=== PATIENT | female | born 1950 | race Caucasian/White ===

== ENCOUNTER → 2024-10-24 11:01 | Outpatient (REF) | payer MEDICARE, OTHER, SELFPAY | LOC: HWRAD 11:01 | PROVIDERS: ATTENDING PHYSICIAN Family Medicine; REFERRING PHYSICIAN Internal Medicine Hematology & Oncology | DX: Z12.31 Encounter for screening mammogram for malignant neoplasm of breast (principal); M85.80 Other specified disorders of bone density and structure, unspecified site; Z78.0 Asymptomatic menopausal state | CPT/HCPCS: 77063; 77067 ==

== ENCOUNTER → 2024-11-29 09:10 | Outpatient (REF) | payer MEDICARE, OTHER, SELFPAY ==
[2024-11-29 10:09] LABS: % Basophils 0.8 % (0-2); % Eosinophils 13.5 % (0-6); % Immature Granulocytes 0.3 % (0-0.5); % Lymphocytes 14.4 % (20.5-51.1); % Monocytes 6.4 % (1.7-9.3); % Neutrophils 64.6 % (42.2-75.2); Absolute Basophils 0.1 10^3/uL (0-0.2); Absolute Eosinophils 0.9 10^3/uL (0-0.7); Absolute Lymphocytes 0.9 10^3/uL (1.2-3.4); Absolute Monocytes 0.4 10^3/uL (0.1-0.6); Absolute Neutrophils 4.2 10^3/uL (1.4-6.5); Hematocrit 37.3 % (37.0-47.0); Hemoglobin 11.9 g/dL (12.0-16.0); Mean Corp Hgb Conc. 31.9 g/dL (33.0-37.0); Mean Corpuscular Hgb 26.3 pg (27.0-31.0); Mean Corpuscular Volume 82.3 fL (81.0-99.0); Mean Platelet Volume 10.9 fL (7.4-10.4); Nucleated Red Blood Cells % 0 %; Platelet Count 262 10^3/uL (130-400); Red Blood Cell Count 4.53 10^6/uL (4.20-5.40); Red Cell Dist. Width 17.5 % (11.5-14.5); White Blood Cell Count 6.5 10^3/uL (4.8-10.8)
[2024-11-29 10:42] LABS: ALT (SGPT) 16 U/L (0-35); AST (SGOT) 28 U/L (14-36); Albumin 4.2 g/dl (3.5-5.0); Alkaline Phosphatase 81 U/L (38-126); Amylase 90 U/L (30-110); Blood Urea Nitrogen 15 mg/dl (7-17); Calcium 8.9 mg/dl (8.4-10.2); Carbon Dioxide 30 mmol/L (22-30); Chloride 102 mmol/L (98-107); Glucose 95 mg/dl (70-99); HDL Cholesterol 81 mg/dl; LDL Cholesterol, Calculated 82 mg/dl; Lipase 215 U/L (23-300); Potassium 4.7 mmol/L (3.5-5.1); Sodium 140 mmol/L (135-145); Total Bilirubin 1.2 mg/dl (0.2-1.3); Total Cholesterol 175 mg/dl (50-199); Total Protein 6.4 g/dl (6.3-8.2); Triglyceride 62 mg/dl (10-149); Very Low Density Lipoprotein 12 mg/dl (0-30); eGFR > 60.00
== END ==
LOC: REG 09:10
PROVIDERS: ATTENDING PHYSICIAN Family Medicine
DX: E78.2 Mixed hyperlipidemia (principal); I10 Essential (primary) hypertension; Z79.899 Other long term (current) drug therapy; R79.89 Other specified abnormal findings of blood chemistry; R10.13 Epigastric pain
CPT/HCPCS: 36415; 80053; 80061; 82150; 83690; 84443; 85025

== ENCOUNTER → 2024-12-04 12:57 | Outpatient (REF) | payer MEDICARE, OTHER, SELFPAY ==
[2024-12-04 13:50] LABS: % Basophils 0.9 % (0-2); % Eosinophils 8.1 % (0-6); % Immature Granulocytes 0.3 % (0-0.5); % Lymphocytes 15.7 % (20.5-51.1); % Monocytes 6.7 % (1.7-9.3); % Neutrophils 68.3 % (42.2-75.2); Absolute Basophils 0.1 10^3/uL (0-0.2); Absolute Eosinophils 0.6 10^3/uL (0-0.7); Absolute Lymphocytes 1.1 10^3/uL (1.2-3.4); Absolute Monocytes 0.5 10^3/uL (0.1-0.6); Absolute Neutrophils 4.7 10^3/uL (1.4-6.5); Hematocrit 37.5 % (37.0-47.0); Hemoglobin 11.8 g/dL (12.0-16.0); Mean Corp Hgb Conc. 31.5 g/dL (33.0-37.0); Mean Corpuscular Hgb 25.9 pg (27.0-31.0); Mean Corpuscular Volume 82.4 fL (81.0-99.0); Mean Platelet Volume 10.8 fL (7.4-10.4); Nucleated Red Blood Cells % 0 %; Platelet Count 267 10^3/uL (130-400); Red Blood Cell Count 4.55 10^6/uL (4.20-5.40); Red Cell Dist. Width 17.4 % (11.5-14.5); White Blood Cell Count 6.8 10^3/uL (4.8-10.8)
[2024-12-04 14:44] LABS: Iron 48 ug/dl (37-170)
[2024-12-04 14:53] LABS: Percent Saturation 9 % (20-50); Total Iron Binding Capacity 482 ug/dl (265-497)
[2024-12-04 16:34] LABS: Ferritin 9.6 ng/ml (11.1-264.0)
[2024-12-04 17:06] LABS: Folate 16.9 ng/ml (2.76-20); Vitamin B12 656 pg/ml (239-931)
== END ==
LOC: REG 12:57
PROVIDERS: ATTENDING PHYSICIAN Family Medicine
DX: D64.9 Anemia, unspecified (principal); Z79.899 Other long term (current) drug therapy
CPT/HCPCS: 36415; 82607; 82728; 82746; 83540; 83550; 85025

== ENCOUNTER 2025-06-04 12:39 | Inpatient (IN) | payer MEDICARE, OTHER, SELFPAY ==
[2025-06-04] VITALS (69 sets, daily range): BP systolic 96–150; BP diastolic 44–118; BMI 23.1
[2025-06-04 11:30] LABS: Glucose - Point of Care 105 mg/dl (70-99)
[2025-06-04 11:46] LABS: Hematocrit 45.0 % (37.0-47.0); Hemoglobin 15.4 g/dL (12.0-16.0); Mean Corp Hgb Conc. 34.2 g/dL (33.0-37.0); Mean Corpuscular Volume 89.3 fL (81.0-99.0); Nucleated Red Blood Cells % 0 %; Platelet Count 186 10^3/uL (130-400); Red Cell Dist. Width 16.7 % (11.5-14.5)
--- NOTE | 2025-06-04 11:48 | CON.NEURO4 ---
Addendum entered and electronically signed by Juanjose Reaves MD 06/04/25 13:36:
Studies reviewed.
I have personally examined the patient. I reviewed and agree with the CONCRETE FLOOR INSTALLER's Note.
My addenda:
Awake, interactive. No acute distress.
Speech reduced output with confusion regarding naming of objects and recall of current events
Follows one-step requests w/ difficulty. No tremor.
Extra-ocular movements grossly intact.
Facial movements full and symmetric. Hearing intact to normal conversational volume.
Normal UE movements bilaterally.
Neck: full ROM.
Chest: no dyspnea
Heart: no JVD
Ext: (-) Clubbing, (-) Cyanosis, (-) Edema
IMPRESSIONS/RECOMMENDATIONS:
Abrupt onset of change in mental status in the form of aphasia both receptive and expressive. 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 CT angiogram was read officially as suggesting left M2 occlusion. Based on studies now
demonstrating lack of improvement significantly with mechanical thrombectomy, patient would not be a candidate for that procedure at that distal location. Patient was however a candidate for tenecteplase and received that medication.
Provide tenecteplase (done)
Allow for permissive hypertension up to 220/120 for the first 24 hours
Consult vascular surgery due to suggestion of fibromuscular dysplasia involving the left internal carotid artery
Would avoid antiplatelet agents until 24 hours after tenecteplase provision, then provide the patient's usual aspirin and clopidogrel
Check echocardiogram due to extensive cardiac history
Continue Ezetimibe when patient able to take by mouth as well as usual atorvastatin
Total Critical Care Time=�40 minutes.
The neurological system is affected and the action required by me to prevent further deterioration or potential was control over the item listed first in the Impressions and Recommendations section of this note.
I was present and personally examined the patient.� I discussed patient care with other professional health care providers.
D/W patient / nursing
All questions answered.
Will continue to follow patient.
Original Note:
Documented by User: Sol Hernandez NP 06/04/25 12:59
Consultation - Neurology 4
-
CONSULTING PHYSICIAN: Juanjose Reaves MD
REFERRING PHYSICIAN: ER/Dr. Rojas
DICTATED BY: ANDREZ Cason
DATE/TIME OF REQUEST: 06/04/25
DATE/TIME OF CONSULTATION: 06/04/25
Reason for Consultation: Stroke Alert
History of Present Illness:
This is a 74-year-old right-handed female who has presented to the hospital with report of confusion and change in mental status. Patient's nephew lives with her and last saw her at her baseline last evening around 2100. This morning (06/04/25), he
noted that she woke up around 0800 and he heard her doing things in her room. Around 1100 he still had not seen her so he checked on her and noted that she was 'not making sense' and partially dressed, prompting him to call 911. EMS noted that her
right arm seemed weak and activated a stroke alert. CT head, CTA head/neck, and CT perfusion were obtained on arrival and demonstrate an ASPECT score 10, left M2 cutoff, and a large ischemic penumbra; mismatch ratio 14. NIHSS is a 6 for mild right
eyelid drooping, severe aphasia, inability to answer orientation questions, and right-sided sensory inattention. IV TNK was administered per protocol (reviewed risks/benefits with patient as best as possible given aphasia), she is not a candidate
for IAT due to the occlusion being distal. Patient is unable to answer review of system questions, she just reports 'not feeling right.' She is taking aspirin 81mg daily. She was previously on DAPT with aspirin 81mg and clopidogrel 75mg daily
following STEMI/PCI placement in 2022. Clopidogrel was recently discontinued at the end of March in the setting of anemia. She was previously evaluated by our inpatient Neurology service once in 2022 s/p STEMI due to altered mental status in the
setting of Phenergan, fentanyl, and midazolam usage. CT head, CTA head/neck were normal at that time and the patient returned to her baseline.
Past Medical History: HTN, STEMI x2, HFrEF, CAD, HLD, breast cancer, migraines, asthma, osteopenia, osteoarthritis, anxiety, iron deficiency anemia
Surgical History: AICD, PCI, R breast lumpectomy, lymph node dissection, ectopic /D&E, tonsillectomy, rhinoplasty
Family History: Reviewed and noncontributory.
Social History: Occasional alcohol. Denies tobacco and illicit drug use.
Allergies: Diazepam, promethazine.
Home Medications: See below.
Review of Symptoms:
Unable to obtain a full ROS due to aphasia.
�Per the HPI.�All systems are reviewed negative except above.
Physical Exam:
The patient is afebrile, abdomen is nondistended, breathing is unlabored, skin is warm and dry, no edema.
NIH Stroke Scale:
I performed the NIH stroke scale on the patient on 06/04/25 at 1140. The patient scored 6 points on the NIH stroke scale assessment, which were assigned as follows: See below.
Neurologic Examination:
The patient is awake, alert and oriented to first name only. She is able to follow some commands, has to mimic for others. She can answer some questions appropriately but not many. There is severe expressive/receptive aphasia, no dysarthria. On
cranial nerve assessment, pupils are 3 mm bilateral, round and reactive to light and accommodation. Visual marin appear full. Extraocular movements are intact but she has a left gaze preference. There is very slight right eyelid drooping/facial
asymmetry. Hearing is intact bilaterally to normal conversation volume. Tongue palate and uvula are midline. Motor strengths are 5/5 bilateral upper and lower extremities on medical research [place] scale. Takes extra prompting to follow commands on
her right side. There is no drift or involuntary movement noted. Deep tendon reflexes are 2+ bilateral upper and lower extremities and Babinski is absent bilaterally. There was extinction noted on double simultaneous stimulation on the right side.
Coordination is intact by finger to nose bilaterally.
Lab Results: See below.
Neuro Imaging:
1. CT Head 06/04/25: No CT evidence of acute intracranial abnormality. ASPECT score: 10.
2. CTA Head/Neck 06/04/25: There is an abrupt cut off of left insular M2 branch artery. No evidence for M1 large vessel occlusion or high-grade stenosis. Calcification involving the left carotid bulb and proximal left ICA with measured diameter
reduction of 48%, just less than hemodynamically significant range. Consider further evaluation with cerebrovascular ultrasound. Findings of the cervical portion of the left ICA, considered fairly characteristic for fibromuscular dysplasia. No
evidence for associated high-grade stenosis. Calcification of the cavernous internal carotid arteries bilaterally. On the left, narrowing appears to be in the range of 50% diameter reduction, and could be hemodynamically significant. No significant
narrowing of the vertebral or basilar arteries. Luminal irregularity of the left posterior cerebral artery, with suggestion of mild to moderate narrowing.
3. CT Perfusion 06/04/25: CBF Mismatch 52cc, ratio 14.0
Differentials for the patient's presentation include:
1. Acute L MCA ischemic stroke in the setting of a L M2 occlusion; etiology likely cardioembolic.
2. CTA head/neck suggestive of L ICA fibromuscular dysplasia.
Patient has the following risk factors for their symptoms: Recent discontinuation of clopidogrel, extensive cardiac comorbidities, HTN, HLD
IV Tenecteplase/IAT candidacy: IV TNK was administered per protocol, she is not a candidate for IAT due to the occlusion being distal.
Recommendations:
� administer IV Tenecteplase (TNK) per protocol urgently while keeping patient's blood pressure to a goal of systolic less than 185 and diastolic less than 110 mmHg during infusion of TNK
� place the patient in medical ICU
� goal blood pressure over the next 24 hours would be less than 180/105 mmHg
� check MRI of the brain within 22-32 hours of TNK without contrast for localization of the stroke
� vascular surgery consultation for suggestion of L ICA FMD
� hold all antiplatelets, OAC meds, DOAC meds, heparinoids for next 24 hours
� check lipid panel and hemoglobin A1c
� continue home atorvastatin 80 mg at bedtime when patient is able to take PO
� goal blood glucose levels for patient would be less than 180 mg/dL
� Speech, PT, OT evaluations needed
� Physiatry consultation warranted
� DVT prophylaxis with sequential compression devices over next 24 hours, can be started on Enoxaparin subcutaneous for DVT prophylaxis beginning 24 hours after TNK provision.
� medical educational materials will be provided
� check an echocardiogram
We will follow.
Discussed patient care with: Dr. Reaves, the patient
Vital Signs and Labs
-
Vital Signs and Labs:
Lab Results
06/04/25 11:33
Medications
-
Home Medications
�Medication �Instructions �Recorded
aspirin 81 mg chewable tablet 81 mg PO DAILY #0 tabs 04/04/23
atorvastatin 80 mg tablet 80 mg PO QPM #30 tabs 04/04/23
clopidogrel 75 mg tablet 75 mg PO DAILY #90 tabs 04/04/23
losartan 25 mg tablet 12.5 mg (1/2 x 25 mg) PO DAILY 04/04/23
Blood pressure #30 tabs
metoprolol succinate 25 mg 12.5 mg (1/2 x 25 mg) PO DAILY #30 04/04/23
tablet,extended release 24 hr tabs
(Toprol XL)
pantoprazole 40 mg tablet,delayed 40 mg PO DAILY #30 tabs 04/04/23
release
spironolactone 25 mg tablet 12.5 mg (1/2 x 25 mg) PO DAILY 30 04/16/23
days #15 tabs
dapagliflozin propanediol 10 mg 10 mg PO DAILY 09/07/23
tablet (Farxiga)
furosemide 20 mg tablet (Lasix) 20 mg PO Q48H 09/07/23
ezetimibe 10 mg tablet (Zetia) 10 mg PO DAILY 06/04/25
fluconazole 150 mg tablet 150 mg PO Q3D 06/04/25
NIH Stroke Score
Subsequent NIH Scale
Date of Subsequent NIH Scale: 06/04/25
Time of Subsequent NIH Scale: 11:40
NIH Stroke Score
Level of Consciousness: 0 - Alert
LOC Questions: 2-Neither correct
LOC Commands: 0-Performs both correctly
Best Horizontal Gaze: 0-Normal
Visual [place]: 0=Normal, no visual loss
Facial Palsy: 1=Minor paralysis
Motor - Right Arm: 0=No drift 10 seconds
Motor - Left Arm: 0=No drift 10 seconds
Motor - Right Le-No drift 5 seconds
Motor - Left Le-No drift 5 seconds
Limb Ataxia: 0-Absent
Sensation: 0-Normal
Best Language: 2-Severe aphasia
Dysarthria: 0-Normal
Extinction and Inattention: 1-Sensory inattention
NIH Total Score:: 6
Modified [place] (mRS) Score
Modified [place] Scale (mRS): Moderate disability. Requires some help, able to walk unassisted.
Score: 3
Alteplase Contraindication
Inclusion and Exclusion criteria reviewed: Yes

Documented by User: Juanjose Reaves MD 06/04/25 13:30
NIH Stroke Score
NIH Stroke Score
NIH Total Score:: 6
Modified [place] (mRS) Score
Score: 3
[2025-06-04] MEDS: TNKASE 3.2 MG IV (12:00)
[2025-06-04 12:04] LABS: Blood Urea Nitrogen 22 mg/dl (7-17); Calcium 10.4 mg/dl (8.4-10.2); Carbon Dioxide 22 mmol/L (22-30); Chloride 108 mmol/L (98-107); Glucose 118 mg/dl (70-99); Sodium 138 mmol/L (135-145); eGFR > 60.00
--- NOTE | 2025-06-04 12:05 | ED.CVA ---
History of Present Illness
General
Chief Complaint: CVA/TIA Symptoms
Source: patient
Time Seen by Provider: 06/04/25 11:27
Onset of Stroke Symptoms
Onset of symptoms known: No
Time pt last seen normal is known: Yes
Date last time pt seen normal: 06/04/25
History of Present Illness
History of Present Illness:
Note:
CHIEF COMPLAINT(S)
Confusion and weakness.
HISTORY OF PRESENT ILLNESS
A 74-year-old female, with a noted past medical history of heart issues including a heart condition a few years ago, was found in a confused state around 11:00 AM by her nephew. She reportedly woke up at 8:00 AM, during which she was heard by her
nephew making noises in her room. When evaluated at 11:00 AM, she was described as 'not making sense' and partially dressed. Her right side, particularly her right arm, demonstrated weakness, and she was unable to articulate words clearly.
Upon examination, the patient reported feeling 'weird' but denied having a headache or chest pain. Although she did not explicitly recognize any weakness, the neurological assessment revealed difficulty in naming items and following commands,
indicating receptive aphasia. Additionally, her cranial nerves were intact, and she exhibited no pronator drift. Her blood glucose level was confirmed normal at 117 mg/dL.
There was no known baseline dementia and no previous history of altered mental status according to EMS.
ADDITIONAL HISTORY OBTAINED FROM SOURCES OTHER THAN THE PATIENT
According to EMS, the patient was found in a state of confusion by her nephew and exhibited right-sided weakness when they arrived. The nephew reported hearing her moving around in the morning but couldnt articulate her thoughts clearly upon their
arrival.
PHYSICAL EXAM
General: Alert, no acute distress.
Skin: Warm, dry.
Head: Normocephalic, atraumatic.
Neck: Supple, trachea midline.
Eye Ears, nose, mouth, and throat: Oral mucosa moist, intact cranial nerves, displays receptive aphasia.
Cardiovascular: Regular rhythm without murmur, normal peripheral perfusion, no edema.
Respiratory: Respirations are non-labored.
Gastrointestinal: Abdomen non-distended.
Back: Normal range of motion, normal alignment.
Musculoskeletal: Right-sided weakness observed.
Neurological: Alert, intermittently follows commands, receptive aphasia, unable to name items on the NIHSS picture card. no obvious focal deficits, CN's intact
Psychiatric: Cooperative, appropriate mood and affect.
PROBLEM LIST
Acute:
1. Receptive aphasia
2. Right-sided weakness
3. Confusion
Chronic:
1. Heart condition
PLAN
The patient will undergo a computed tomography (CT) scan of the head to evaluate for potential cerebrovascular incident causes, such as a stroke. Further neurological assessments will be conducted to determine the extent of the aphasia and weakness.
DIFFERENTIAL DIAGNOSIS
The Differential Diagnosis includes, in no particular order and is not limited to:
1. Stroke
2. Transient Ischemic Attack (TIA)
3. Seizure activity
4. Hypoglycemia
5. Electrolyte imbalance
6. Medication side effects
7. Intracranial hemorrhage
8. Acute confusional state
9. Brain tumor
10. Infection (such as encephalitis or meningitis)
CARE-UPDATE
06/04/25 - 12:05
Patient received TNK administration. Perfusion analysis shows a mismatch greater than 1.8, indicating a significant penumbra versus infarct ratio. CTA results show M2 cut off. Receptive aphasia noted, as patient struggled with object
identification verbally and through visual recognition tests. Attempts to engage receptive functions were limited, largely due to communicative impairments. Despite these challenges, the patient demonstrated awareness of tactile stimuli on the
correct body side with eyes closed.
EKG
My independent EKG interpretation is:
- Time of EKG: [Not specified in the insurance risk analyst]
- Rhythm: Normal sinus rhythm
- Heart Rate: 97 bpm
- Douglas: Left axis deviation
- Notable Intervals: Left anterior fascicular block
- QRS Duration: Right bundle branch block
- Abnormalities: Evidence of left ventricular hypertrophy (LVH)
Disposition:
SUMMARY OF ENCOUNTER
A 74-year-old female was brought to the emergency department after her family member found her in a confused state, demonstrating receptive aphasia, and possible neglect. Upon examination, a CT perfusion study confirmed a stroke with penumbra.
Neurology was consulted and recommended the administration of tenecteplase (TNK), which was subsequently provided. The patient remained stable with a blood pressure of 143/75. The CT angiography showed a cutoff of the left M2 insular branch.
ASSESSMENT
The patient presents with symptoms consistent with a cerebrovascular accident (stroke) with receptive aphasia and potential neglect.
EMERGENCY TREATMENTS ADMINISTERED
Tenecteplase (TNK) was administered as recommended by the neurology team.
MANAGEMENT OF THE PATIENTS CARE WAS DISCUSSED WITH
Neurology was consulted for the initial management and did not recommend transfer for intervention, advising admission to the ICU.
PLAN
The patient will be admitted to the ICU for close monitoring and management of the acute stroke symptoms, with further instructions and management to be overseen by the neurology team.
INDEPENDENT REVIEW OF LABS AND INTERPRETATION OF TESTS
- My independent review of chemistry is that it is grossly unremarkable with normal sodium level.
- My independent review of blood glucose is normal at 118 mg/dL.
- My independent review of CT perfusion shows confirmation of stroke with penumbra.
- My independent review of CT angiography indicates a cutoff of the left M2 insular branch.
MEDICAL DECISION MAKING
- Number and Complexity of Problems Addressed: Chronic conditions affecting care include a history of heart conditions. Differential diagnosis includes stroke, transient ischemic attack (TIA), intracranial hemorrhage, acute confusional state, among
others.
- Data:
- Category 1
- My independent interpretation of the CT perfusion and CTA confirms a stroke with penumbra affecting the left M2 insular branch.
- Category 3
- Discussion of management was held with the neurology team, who advised against transfer and recommended ICU admission.
DIAGNOSIS
- Cerebrovascular accident (ischemic stroke), I63.9
Past History
Past History
ED Past Medical History: Cancer (Breast cancer) and HTN
ED Past Surgical History: Gynecological (Lymph node dissection, lumpectomy, ectopic )
Social History
Tobacco: Non-smoker
Phy Exam
Physical Exam
Physical Exam:
.
Course
Orders/Labs/Results
Orders:
Orders
06/04/25 11:28
Electrocardiogram (*1) Urgent
Reason for Study: Other
Other Reason for Exam: Possible Stroke
CT HEAD STROKE ALERT W/o Cont Urgent
Comment:
Reason For Exam: aphasia
Bedside Glucose- Treatment ONCE
Cardiac Monitoring- Treatment ONCE
IV Insert/Care/Rem.- Treatment PRN
Vital Signs As Directed
Frequency: Other
Weight As Directed
Frequency: Once
Comment: ZERO STRETCHER SCALE FOR ACCURATE WEIGHT
O2 Therapy [RESP] Urgent
Titrate/Wean O2 to maintain O2 sat greater than (%): 93
Special Instructions: MAINTAIN CONTINUOUS O2 SATS > OR = 93%
06/04/25 11:29
EKG- Treatment ONCE
06/04/25 11:30
CT BRAIN PERF STROKE ALERT Urgent
Comment:
Reason For Exam: expressive aphasia
CT HEAD/NECK ANG STROKE ALERT Urgent
Comment:
Reason For Exam: expressive aphasia
06/04/25 11:33
Basic Metabolic Panel Urgent
Complete Blood Count/With Diff Urgent
PTT Urgent
Prothrombin Time Urgent
06/04/25 11:55
Tenecteplase [Tnkase] 16 mg Syringe [Syringe Non-Pump] 0 ml IV NOW
Provider explained risk/benefits to patient &/or caregiver?: Yes
06/04/25 12:18
Transplant Coordinator Consult Routine
Consulting Provider: Josiah Miller
Was physician already notified: Yes
Reason for consult: acute cva s/p tpa
NEUROLOGY CONSULT Routine
Consulting Provider: Juanjose Reaves
Was physician already notified: Yes
Reason for consult: acute cva
06/04/25 12:19
Admit/Transfer Patient As Directed
Co-Sign Provider:
Level of Care: Inpatient admission
Assign to:: ICU
Physician / Group: yolanda josé
Diagnosis: acute cva s/p tnk
Reason for Hospitalization: acute cva s/p tnk
Expected length of stay greater than two midnights?: Yes
ELOS- Estimated Length of Stay in days: 6
I certify the patient meets the requirements for IP care: Yes
Echo 2D MMode Color/Doppler Routine
Reason for Study: Thrombotic source for stroke-like sxs
06/04/25 12:20
Code Status As Directed
Resuscitation Status: Full Code
06/04/25 12:26
PRN Pain Medication Management As Directed
May give lesser potent ordered pain med per pt: Yes
preference::
Protocol:: Medication orders for pain may be administered in a
manner that supports deferring to patient preference
when the pt is:
- Requesting an ordered lesser potent pain medication.
Least to most potent pain medications are defined
as: acetaminophen < NSAID < tramadol < opioids
(morphine, oxycodone, hydromorphone).
- Requesting a lesser dose of the same medication IF
ORDERED.
- Requesting a less intrusive route of administration
if both routes are prescribed by the provider (PO <
IV).
06/04/25 13:02
Acetaminophen [Tylenol] 650 mg PO Q4HPRN PRN
Labetalol HCl [Trandate] 10 mg IV Q6HPRN PRN
06/04/25 13:02
Electrocardiogram (*1) Routine
Reason for Study: TIA/Stroke
Case Management Consult Once
Case Management Consult: Discharge Planning
Comment: acute cva
DIETARY IP CONSULT Routine
Reason for Consult: stroke/TIA
Spreader Operator Automatic Urgent
Hemetest Stools As Directed
Comment: hemoccult all stools if patient received tenecteplase
NIH Stroke Scale As Directed
Directions: Other
Comment: NIH stroke Scale to be completed prior to thrombolytic administration, then every 1 hour for 2
hours, then every shift and with change in condition and/or mental status.
Neurological Checks As Directed
Frequency: Per unit guidelines
Additional Instructions:: after start of thrombolytic therapy:
q15min x 2 hrs, q30min x 6 hrs, q1h x 16 hrs, q4h x 24 hrs, then every shift and
with any changes.
Notify MD As Directed
Notify physician if: - Any deterioration, change in neurological status, development of severe headache,
nausea and vomiting, or with any signs of bleeding. (see guidelines for suspected
intracerebral hemorrhage).
- If intracranial hemorrhage is suspected or confirmed by imaging, anticipate need for
osmotic diuretic to maintain euvolemia.
Notify MD As Directed
Notify physician if: Glucose less than 70 or greater than 180.
Anticipate corrective insulin orders.
Notify MD As Directed
Notify physician if: unable to obtain MRI of head within 22-32 hours of tenecteplase administration
- contact Neurology for order for CT of head without contrast
Patient Education As Directed
Type: Stroke education packet
Comment: provide to patient and family
Pneumatic Compression Sleeves As Directed
Type: Knee high
Precautions As Directed
Type of Precautions: Bleeding
Comment: post Bleeding Precaution sign at bedside (if patient received tenecteplase)
Swallow Screening CVA/TIA ONLY As Directed
Comment: NPO until swallow screening completed
If patient FAILS swallow screening:: NPO and Speech consult and aspiration precautions
If patient PASSES swallow screening, diet:: Cholesterol Lowering
Above diet order entered?: Yes- passed screening
Thrombolytic Precautions As Directed
Thrombolytic Precautions:: Bigelow bleeding precautions. Minimize invasive procedures and venipunctures,
avoid IM injections and over-handling patient, and check all puncture sites for
bleeding. Assess the patient and notify provider for signs and symptoms of
internal or serious bleeding, such as changes in vital signs or evidence of blood
in the urine or stool.
Additional instructions: Hemocult all stools.
Apply direct pressure or pressure dressing to any compressible puncture sites.
No ABG sampling or Willard insertion after Tenecteplase administration for 24 hours,
unless directed by the Neurologist/Attending.
Vital Signs As Directed
Frequency: q15m
Call for:: BP greater than 180/105 mmHg or less than 100/60 mmHg
Additional Instructions:: after start of thrombolytic therapy:
q15min x 2 hrs, q30min x 6 hrs, q1h x 16 hrs, q4h x 24 hrs, then every shift and
with any changes.
Ot Eval And Treat Routine
Physiatry Consult Routine
Consulting Provider: Kd Syed
Was physician already notified: Yes
Reason for consult: stroke/TIA
Pt Eval And Treat Routine
Activity Level: As Tolerated
Speech Therapy Eval & Treat Routine
Carotid US [US Cerebrovascular] Routine
Comment:
Reason For Exam: acute CVA, carotid stenosis on CT
DX Deep Vein Thrombosis Video Routine
06/04/25 14:18
Troponin I Urgent
06/04/25 15:15
VerifyNow Aspirin Routine
Pt on daily regimen OR been given initial dose of aspirin?: Yes
Comment: may use blood in lab
06/05/25 03:07
Basic Metabolic Panel IN AM
Cardiovascular Evaluation IN AM
Complete Blood Count/No Diff IN AM
PTT IN AM
Prothrombin Time IN AM
Abnormal Lab Results
06/04/25 06/04/25
11:28 11:33
RDW 16.7 H %
(11.5-14.5)
MPV 10.5 H fL
(7.4-10.4)
Chloride 108 H mmol/L
(98-107)
BUN 22 H mg/dl
(7-17)
Glucose 118 H mg/dl
(70-99)
Calcium 10.4 H mg/dl
(8.4-10.2)
POC Glucose 105 H mg/dl
(70-99)
06/04/25 11:33
06/04/25 11:33
Vital Signs
Initial and Last Documented VS:
Initial Vital Signs
Pulse Resp BP
99 18 143/75
06/04/25 12:03 06/04/25 12:03 06/04/25 12:03
Last Documented Vital Signs
Temp Pulse Resp BP Pulse Ox
97.9 F 82 16 128/55 99
06/06/25 15:30 06/06/25 15:30 06/06/25 15:30 06/06/25 15:30 06/06/25 15:30
*Pulse Oximetry
SaO2: 98
Oxygen Mode of Delivery: Room air
Patient hypoxic: no
*Cloth Baler Interpretation
Rate: normal
Interpretation: normal
Rhythm: sinus
*Critical Care Note
Total Time (30-74mins, 75-104mins- exclusive of procedures): 35 minutes
ED Attending Note
-
Portions of this chart may have been created with voice recognition software.� Occasional wrong word or��sound alike� substitutions may have occurred due to the inherent limitations of voice recognition software.
Discharge Plan
Departure
Patient Disposition: Admit
Date of Disposition: 06/04/25
Time of Disposition: 12:05
Admit to: ICU
Presentation/result/management discussed w/ accepting MD/DO: Hospitalist
Discharge Problem:
Acute cerebrovascular accident (CVA)
Interventions
Interventions:
*Risk Screen - Suicide Last Done: 06/04/25 12:51
*General Assessment Last Done: 06/04/25 12:51
*Neglect/Abuse Screening Last Done: 06/04/25 12:51
*ED- Fall Risk Assessment Last Done: 06/04/25 12:51
*ED COVID-19 Vaccine History Last Done: 06/04/25 14:46
*Nursing Disposition Last Done: 06/04/25 12:51
ED- Pulmonary Assessment Last Done: 06/04/25 12:23
ED- Neurological Assessment Last Done: 06/04/25 12:23
ED- Cardiac Assessment Last Done: 06/04/25 12:23
Discharge Date and Time
Discharge Date/Time: 06/04/25 12:52
[2025-06-04 12:06] LABS: INR 0.98; PT 13.5 Sec (11.4-14.6)
[2025-06-04 12:07] LABS: APTT 23.6 Sec (23.4-35.0)
--- NOTE | 2025-06-04 12:23 | HPS.HSE ---
Family Physician
-
Family Physician:
Chief Complaint
-
acute CVA
History of Present Illness
74 y/o F, CAD s/p stents, HLD, Reported hx of CHF, Asthma, hx of right breast Ca found today confused by her nephew around 11 AM. She woke up at 8 AM and was noted by nephew to be making noises in her room. at 11 AM, nephew noted patient not making
any sense and was partially dressed. She was demonstrating RUE weakness and unable to articulate her words clearly. She was brought to ER as a CVA alert. In ER she was having difficulty naming items and was not able to fully follow commands. Also
not perceptive of RUE weakness. Neurology was contacted and patient was screened for and then given TNK for acute CVA.
CT revealed Lt M2 occlusion not amenable to thrombectomy per Neurology.
Of note, patient with recent issue of iron deficiency anemia for which Plavix was stopped by her Machine Captain and she was due for EGD/Colon tomorrow with GI to evaluate anemia.
Medical History
Past Medical History
Past Medical History: Reports Other (CAD s/p stents, HLD, Reported hx of CHF, Asthma, hx of right breast Ca)
Past Surgical History: Reports Cardiac
Social History
Tobacco: Non-smoker
Alcohol: None
Drug: None
Living: With Family
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
Family History
Family History: Not pertinent
Allergies / Home Medications
Allergies reflects when Allergies were last updated in [facility].
Home Medications with original date entered in [facility]
Allergy/Medication List:
Allergies
Allergy/AdvReac Type Severity Reaction Status Date / Time
diazepam (From Valium) Allergy Unknown Verified 09/15/23 06:42
promethazine (From Phenergan) Allergy Unknown Verified 09/15/23 06:42
Home Medications
aspirin 81 mg chewable tablet 81 mg PO DAILY #0 tabs 04/04/23
atorvastatin 80 mg tablet 80 mg PO QPM #30 tabs 04/04/23
clopidogrel 75 mg tablet 75 mg PO DAILY #90 tabs 04/04/23
losartan 25 mg tablet 12.5 mg (1/2 x 25 mg) PO DAILY Blood pressure #30 tabs 04/04/23
pantoprazole 40 mg tablet,delayed release 40 mg PO DAILY #30 tabs 04/04/23
spironolactone 25 mg tablet 12.5 mg (1/2 x 25 mg) PO DAILY 30 days #15 tabs 04/16/23
dapagliflozin propanediol 10 mg tablet (Farxiga) 10 mg PO DAILY 09/07/23
furosemide 20 mg tablet (Lasix) 20 mg PO Q48H 09/07/23
ezetimibe 10 mg tablet (Zetia) 10 mg PO DAILY 06/04/25
fluconazole 150 mg tablet 150 mg PO Q3D rash 06/04/25
metoprolol succinate 25 mg tablet,extended release 24 hr (Toprol XL) 12.5 mg PO DAILY 06/04/25
Review of Systems
-
A 12 point ROS was completed and negative except as noted: Yes
Physical Exam
Vital Signs
Vital Signs
Pulse Resp BP Pulse Ox
99 18 142/62 98
06/04/25 12:17 06/04/25 12:17 06/04/25 12:17 06/04/25 12:21
Physical Exam
General: No Apparent Distress
HEENT: NormoCephalic and Anicteric
Respiratory: Clear
Cardiac: S1/S2 and Regular Rhythm
GI: Soft
Neuro: Awake and Other (Right sided 2/5 weakness, expressive and receptive asphasia. unable to name items on stroke assessment card. )
Psych: Calm
Laboratory Results
-
06/04/25 11:33
06/04/25 11:33
Laboratory Results
PT 13.5 Sec (11.4-14.6) 06/04/25 11:33
INR 0.98 06/04/25 11:33
APTT 23.6 Sec (23.4-35.0) 06/04/25 11:33
Total Bilirubin Cancelled 06/04/25 11:33
AST Cancelled 06/04/25 11:33
ALT Cancelled 06/04/25 11:33
Alkaline Phosphatase Cancelled 06/04/25 11:33
Troponin I Cancelled 06/04/25 11:33
Data Reviewed
-
CT Scan: Report Reviewed by me, Discussed with Physician and Discussed with Patient
Lab Data: Labs Reviewed by me, Discussed with Physician and Discussed with Patient
Impression/Plan
-
Assessment:
Acute CVA:
- CT head negative
- CT-Perfusion: Perfusion abnormality is present involving the posterior and superior insular region, with core perfusion abnormality in the insular region. Larger area of penumbra extending superiorly centered in the left parietal region.
- CTA: abrupt cut off of left insular M2 branch artery. Calcification involving the left carotid bulb and proximal left ICA with measured diameter reduction of 48%, just less than hemodynamically significant range. Consider further evaluation with
cerebrovascular ultrasound. Findings of the cervical portion of the left ICA, considered fairly characteristic for fibromuscular dysplasia. No evidence for associated high-grade stenosis. Calcification of the cavernous internal carotid arteries
bilaterally. On the left, narrowing appears to be in the range of 50% diameter reduction, and could be hemodynamically significant.
- reviewed with Neurology; not a target for mechanical thrombectomy
- TNK administered in ER
- ICU admission
- post-TNK protocol with BP monitoring and neuro-checks/NIH scales ordered
- BP goal maintain less than 180/105; prn Labetalol with parameters. hold PO agents
- hold all blood thinners
- check Carotid US
- check Echo
- routine MRI brain in 24 hours
- Lipids/A1c
- Neurology consult
- ICU consult
- Vascular consult for L ICA showing FMD
- PT/OT
- ST
- PMR evaluation
CAD s/p stents (2 years ago)
Essential HTN
HLD
- hold BB/ASA/Statin/Losartan/Zetia/Farxiga
- recently taken off Plavix due to iron deficiency workup planned outpatient
Iron deficiency anemia
- was planned for EGD/Colon 06/05; I notified Dr. Padilla
- hold oral PPI
- daily IV PPI
Chronic HFrEF
- repeat Echo
- holding Lasix
DVT ppx: SCDs
Code: Full
Total Critical Care Time 50 minutes. I was immediately available to the patient and staff. I personally examined, reviewed labs, diagnostic images/reports, interpretations, treatment plans, discussed patient care with other providers and family
or caregivers (if patient is unable to make decisions), entered orders as appropriate and documented the medical record.
--- NOTE | 2025-06-04 12:24 | PHANOTE ---
Home med note:
Cardiology note in [facility] from 05/12/25
' She had been on aspirin and Plavix but because of the iron deficiency anemia during her recent visit on 04/24/[address] Steiner she was taken off the Plavix since she is greater than 2 years post ACS with stent placement and was also started on
oral iron supplements and was recommended endoscopy and colonoscopy.'
--- NOTE | 2025-06-04 13:24 | CON.VAS ---
Addendum entered and electronically signed by Carlos Alberto Santana MD 06/04/25 16:06:
Seen and examined with LUANN Ahuja. Agree with findings as noted below. Lateralizing left hemispheric symptoms today with expressive aphasia and right arm discoordination. Resolved after the administration of TNK. No prior symptoms. No amaurosis
symptoms ever. No prior history of strokes. Risk factors and medical history as noted below.
On exam/she is awake and alert. No acute distress. Breathing is unlabored. Neurologically no focal deficits.
CT angiogram reviewed. Left carotid bifurcation/proximal internal carotid artery moderate atherosclerotic plaque, but no stenosis greater than 50%. Fibromuscular dysplasia findings noted in bilateral cervical internal carotid arteries, left side
appears more pronounced than the right side. There is no evidence of stenosis in this segment of fibromuscular dysplasia even on the fine cut CT scan images.
Plan/ Left carotid (bilateral) fibromuscular dysplasia. Left TIA/CVA event, resolved after TNK administration. If this was a fibromuscular dysplasia driven phenomenon, there is no residual stenosis that would warrant angioplasty at this time.
May have been a micro thrombus or platelet aggregation associated with fibromuscular dysplasia, but cannot say definitively. Would recommend antiplatelet therapy (either aspirin alone or consideration for aspirin/Plavix). Will defer to neurology
regarding further management of TIA/CVA event. She can follow-up in the office with us in 6 months with repeat CTA of the head and neck for further surveillance of carotid fibromuscular dysplasia. In addition would recommend at some point CT
angiogram imaging of the abdomen/pelvis for screening for renal artery fibromuscular dysplasia as well as iliac artery involvement.
Original Note:
Consultation
Consultation Request
Date/Time Consultation Performed: 06/04/25 1:45pm
Performing Provider: Max
Reason for Consultation: Carotid stenosis
Medical History
-
Chief Complaint: Confusion
History of Present Illness:
74 yo female with PMH significant for CAD, HLD, CHF, asthma, hx of breast CA presented to the ER today from home for confusion. Pt's nephew found her confused around 11am. She was 'not making sense' and partially dressed. Pt states she 'could not
find her right arm' and could see an arm that 'seemed like a fake rubber arm.' In ER pt had difficulty naming objects and following commands. Pt was seen by neurology and given TNK for acute CVA. CT revealed Lt M2 occlusion not amenable to
thrombectomy per Neurology, and possible FMD.
Vascular consult for above findings. Pt seen at bedside this afternoon with Dr Santana. Pt has no complaints at this time, she feels back to her baseline.
Past Medical History
Past Medical History: Asthma, CAD (stenting), Cancer (Breast), CHF and Other (HLD)
Past Surgical History: Cardiac
Social History
Tobacco: Non-Smoker
Alcohol: None
Drug: None
Living: With Family
Employment: Employed
Family History
Family History: Reviewed & Not Pertinent
Allergies / Home Medications
Allergy/AdvReac Type Severity Reaction Status Date / Time
diazepam (From Valium) Allergy Unknown Verified 09/15/23 06:42
promethazine (From Phenergan) Allergy Unknown Verified 09/15/23 06:42
�Medication �Instructions �Recorded �Confirmed �Type
aspirin 81 mg chewable tablet 81 mg PO DAILY #0 tabs 04/04/23 06/04/25 Rx
atorvastatin 80 mg tablet 80 mg PO QPM #30 tabs 04/04/23 06/04/25 Rx
clopidogrel 75 mg tablet 75 mg PO DAILY #90 tabs 04/04/23 09/15/23 Rx
losartan 25 mg tablet 12.5 mg (1/2 x 25 mg) PO DAILY 04/04/23 06/04/25 Rx
Blood pressure #30 tabs
pantoprazole 40 mg tablet,delayed 40 mg PO DAILY #30 tabs 04/04/23 06/04/25 Rx
release
spironolactone 25 mg tablet 12.5 mg (1/2 x 25 mg) PO DAILY 30 04/16/23 06/04/25 Rx
days #15 tabs
dapagliflozin propanediol 10 mg 10 mg PO DAILY 09/07/23 06/04/25 History
tablet (Farxiga)
furosemide 20 mg tablet (Lasix) 20 mg PO Q48H 09/07/23 06/04/25 History
ezetimibe 10 mg tablet (Zetia) 10 mg PO DAILY 06/04/25 06/04/25 History
fluconazole 150 mg tablet 150 mg PO Q3D rash 06/04/25 06/04/25 History
metoprolol succinate 25 mg 12.5 mg PO DAILY 06/04/25 06/04/25 History
tablet,extended release 24 hr
(Toprol XL)
Review of Systems
-
History Source: Patient
All other systems: Negative unless noted
Constitutional: Reports No Symptoms
EENT: Reports No Symptoms
Respiratory: Reports No Symptoms
Cardiac: Reports No Symptoms
Vascular: Denies Leg Pain / Claudication
Abdomen/GI: Reports No Symptoms
Musculoskeletal: Reports No Symptoms
Skin: Reports No Symptoms
Neurological: Reports Other ('Could not find her right arm')
Physical Exam
Vital Signs
Pulse Resp BP Pulse Ox
71 14 132/70 95
06/04/25 13:02 06/04/25 13:02 06/04/25 13:02 06/04/25 12:50
Lab Results
06/04/25 11:33
06/04/25 11:33
Troponin I Cancelled 06/04/25 11:33
Physical Exam
General: No Apparent Distress
HEENT: Normocephalic and Atraumatic
Respiratory: Non Labored Respirations
Cardiac: Negative JVD
GI: Soft
Musculoskeletal: No Clubbing, No Cyanosis and No Edema
Skin: Warm
Neuro: Awake, Alert and Oriented
Psych: Calm
Assessment / Plan
-
74 yo female here with acute CVA
Plan:
Recommend to continue Aspirin and plavix when cleared
I will add vascular office follow up to chart (6 months with repeat CTA head/neck)
Data Reviewed
-
CT Scan: Discussed with Physician
Labs: Labs Reviewed by me
--- NOTE | 2025-06-04 13:44 | CON.INTV ---
Consultation
Consultation Request
Date/Time Consultation Requested: 06/04/2025
Date/Time Consultation Performed: 06/04/2025
Requesting Provider: Dr. Martinez
Performing Provider: Dr. Josiah Enamorado
Reason for Consultation: Acute CVA
Medical History
-
History of Present Illness:
74-year-old woman with past medical history significant for coronary artery disease with prior stents, hyperlipidemia, possible history of heart failure unknown type, asthma, history of right breast cancer found confused by her nephew around 11 AM.
She was heard making noises in the room around 8 AM. Patient was confused. There was some reports of right upper extremity weakness and aphasia.
Brought to the emergency room for evaluation of CVA. There was no motor deficit but there was expressive aphasia noted.
Neurology consulted emergently and evaluated the patient, tenecteplase was provided for suspicion of acute CVA.
CT of the head/neck revealed a left M2 occlusion not amenable for thrombectomy.
-
It is noted that her Plavix was discontinued recently due to iron deficiency anemia. She was supposed to get EGD and colonoscopy tomorrow.
Past Medical History
Past Medical History: Other (See assessment and plan)
Social History
Tobacco: Non-smoker
Alcohol: None
Drug: None
Living: With Family
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
Family History
Family History: Reviewed & Not Pertinent
Allergies / Home Medications
Allergies
Allergy/AdvReac Type Severity Reaction Status Date / Time
diazepam (From Valium) Allergy Unknown Verified 09/15/23 06:42
promethazine (From Phenergan) Allergy Unknown Verified 09/15/23 06:42
Home Medications
�Medication �Instructions �Recorded �Confirmed �Last Taken �Type
aspirin 81 mg chewable tablet 81 mg PO DAILY #0 tabs 04/04/23 06/04/25 09/15/23 05:30 Rx
atorvastatin 80 mg tablet 80 mg PO QPM #30 tabs 04/04/23 06/04/25 09/14/23 18:00 Rx
clopidogrel 75 mg tablet 75 mg PO DAILY #90 tabs 04/04/23 09/15/23 09/15/23 05:30 Rx
losartan 25 mg tablet 12.5 mg (1/2 x 25 mg) PO DAILY 04/04/23 06/04/25 09/15/23 05:30 Rx
Blood pressure #30 tabs
pantoprazole 40 mg tablet,delayed 40 mg PO DAILY #30 tabs 04/04/23 06/04/25 09/15/23 05:30 Rx
release
spironolactone 25 mg tablet 12.5 mg (1/2 x 25 mg) PO DAILY 30 04/16/23 06/04/25 09/15/23 05:30 Rx
days #15 tabs
dapagliflozin propanediol 10 mg 10 mg PO DAILY Diabetes 09/07/23 06/04/25 09/14/23 20:30 History
tablet (Farxiga)
furosemide 20 mg tablet (Lasix) 20 mg PO Q48H Fluid 09/07/23 06/04/25 09/13/23 08:30 History
Retention/Swelling
ezetimibe 10 mg tablet (Zetia) 10 mg PO DAILY High Cholesterol 06/04/25 06/04/25 Unknown History
fluconazole 150 mg tablet 150 mg PO Q3D rash 06/04/25 06/04/25 Unknown History
metoprolol succinate 25 mg 12.5 mg PO DAILY Blood Pressure 06/04/25 06/04/25 Unknown History
tablet,extended release 24 hr
(Toprol XL)
Review of Systems
-
History Source: Patient
All other systems: Negative unless noted
Vitals / Labs / Diagnostic Testing
Vital Signs
Pulse Resp BP Pulse Ox
70 18 118/50 96
06/04/25 13:32 06/04/25 13:32 06/04/25 13:32 06/04/25 13:15
Lab Data
06/04/25 11:33
06/04/25 11:33
Laboratory Results
06/04/25
11:33
PT 13.5
INR 0.98
APTT 23.6
Diagnostic Testing:
Physical Exam
-
HEENT: Normocephalic
Cardiovascular: S1/S2
Respiratory: Non-Labored Respirations
GI: Soft
Neurology: Awake, Alert, No Motor Deficits, Other (Following commands. Attempting to read the menu.) and Other (Mild expressive aphasia noted.)
Skin: Warm
General: Comfortable
Assessment
-
74-year-old woman admitted with confusion. Received tenecteplase due to suspicion for acute CVA. Then transferred to the critical care unit for further hemodynamic monitoring and workup. 06/04/2025
Aphasia/confusion-suspected acute CVA
Status post tenecteplase 06/04/2025
Conditions present prior admission:
Coronary artery disease status post stents
Hyperlipidemia
History of asthma
History of right breast cancer
History of CHF unknown type
Iron deficiency
Assessment and plan:
-ICU hemodynamic monitoring.
-Monitor for bleeding
-Telemetry monitoring.
- Status post IV Tenecteplase a single bolus at 0.25 mg/kg-06/04/2025
- Continue with every hour neurochecks
-
Clinically improved. Mild expressive aphasia. NIH scale 1
No significant motor deficit on exam
-Maintain euvolemia using 0.9% NaCl if necessary.
-Avoid antihypertensive medications unless MAP is persistently higher than 180 or first 24 hours.
- Labetalol IV as needed will be used.
- Hold oral antihypertensive for now
-Maintain elevation of HOB 30-45 degrees.
-Speech evaluation per protocol
-Utilize a pneumatic compression device for DVT prophylaxis.
-No antiplatelet agents nor anticoagulants, including heparin, low molecular weight heparin, heparinoids, warfarin, ASA and other antiplatelet agents, and NSAIDs;
-Monitoring of vital signs and neurologic status should be performed every hour.
-
-Restart antiplatelets eventually. Plavix was held as the patient has a history of iron deficiency workup ongoing by GI in the outpatient setting-currently will be on hold.
- Echocardiogram has been ordered
-MRI brain wo adrian next 24 hours.
-Vascular has been consulted given the presence of left internal carotic abnormality on CT angiogram.
-TTE
-SCD/TEDs
-
Eventually physical therapy/Occupational Therapy and physiatry consultation.
Critical care statement: A total of 31 minutes of critical care time was provided for this patient today. This includes management of unstable vital signs, evaluation of the patient at bedside, reviewing the patient's pertinent medical records
including ventilator settings, arterial blood gases, radiographs, microbiology, laboratory evaluations and discussion with primary team, critical care nursing, and respiratory therapy.

Data review:
CT head 06/04/2025: No acute intracranial abnormality.
-
Perfusion brain CT 06/04/2025:Perfusion abnormality is present involving the posterior and superior insular region, with core perfusion abnormality in the insular region. Larger area of penumbra extending superiorly centered in the left parietal
region.
-
CT angiogram:No evidence for M1 large vessel occlusion or high-grade stenosis.
Calcification involving the left carotid bulb and proximal left ICA with measured diameter reduction of 48%, just less than hemodynamically significant range. Consider further evaluation with cerebrovascular ultrasound.
Findings of the cervical portion of the left ICA, considered fairly characteristic for fibromuscular dysplasia. No evidence for associated high-grade stenosis.
Calcification of the cavernous internal carotid arteries bilaterally. On the left, narrowing appears to be in the range of 50% diameter reduction, and could be hemodynamically significant.
No significant narrowing of the vertebral or basilar arteries.
Luminal irregularity of the left posterior cerebral artery, with suggestion of mild to moderate narrowing.
[2025-06-04 14:59] LABS: Troponin I 0.031 ng/ml
--- NOTE | 2025-06-04 15:28 | CM ---
Initial assessment completed with patient who lives with her nephew who is blind in a 2 story townhouse with garage on 1st level and B/B on 2nd level, 6 steps to enter 2nd flooor. [employer] patient was independent in ADL's and ambulation, drives. No DME
and no in-home services. Does have a HC-POA. PCP is Dr. Laura Sawant and Pharmacy is [facility] in [place]. Discharge POC: Anticipate Home with NN vs Home with HH.
--- NOTE | 2025-06-04 15:29 | PTOTSP ---
Speech Therapy Evaluation:
Swallow:
Pt with acute risk factor including c/f acute CVA, however oropharyngeal swallow appeared functional at bedside. No overt s/sx of aspiration, pt passed 3oz swallow screen, WBC WNL, pt without dysphagia hx, and CXR without acute cardiopulmonary
process.
Language:
Given c/f acute L MCA CVA with severe aphasia noted in ED, the Quick Aphasia Battery (QAB) Form 1 was administered. Scores were as follows:
Word Comprehension: 10.00
Sentence Comprehension: 10.00
Word Findin.00
Grammatical Construction: 10.00
Speech Motor Programmin.00
Repetition: 10.00
Readin.00
QAB Overall: 10.00 - no aphasia.
Impression: Pt earned an overall score of 10.00, indicative of no aphasia per parameters of this assessment.
Recommend:
1. Continue regular solids and thin liquids
2. Meds as tolerated
3. General aspiration precautions
4. SENIOR BILLING CONSULTANT to follow for tolerance of diet, likely brief
5. No SENIOR BILLING CONSULTANT services warranted for language, however will monitor MRI to determine if further cognitive assessment warranted
--- NOTE | 2025-06-04 16:01 | PTCARENOTE ---
Pt transported to unit bed from ED via stretcher and transferred over to unit bed by nursing staff. Pt with receptive and expressive aphasia with right sided facial palsy and right sided weakness. Unable to recall last name, age, month. Upon
transfer to ICU, pt began saying, 'I remember my last name! I'm 74! It's May!' NIHSS 0 upon arrival. Pt expressing word finding issues at times, but not observed during time of NIHSS assessments. SaO2 98% on room air. Coarse scattered rhonchi
upon auscultation. Sinus rhythm with BBBC on monitor car operator. Peripheral pulses palpable. ECHO and Carotid US completed at bedside. Pt passed swallow eval. Upgrade to Low Cholesterol diet. Pt ate 100% of lunch. Assist x1 to bathroom, voiding clear
yellow urine.
[2025-06-04 16:13] LABS: VerifyNow Aspirin 542 ARU
[2025-06-04] MEDS: LIPITOR 80 MG PO (18:23)
--- NOTE | 2025-06-04 21:28 | PTCARENOTE ---
Pt received start of shift, HR SB/SR w/ BBB and occasional a-pacing on telemetry. NIH performed w/ previous shift RN; Score 0. AAOx4. RA, POX 97%. Voiding well.
Pt used call velazquez to inform RN she was 'having an ocular migraine' and could see a 'lightning bolt squiggle' in R eye. Pt vision otherwise WNL. Pt denied any vision blurriness or headache. Pt stated this happens a few times a year and doesn't take
anything for it. TERMINOLOGIST aware. Resolved in approximately 20-30 minutes without intervention and with no other symptom onset.
[2025-06-04] MEDS: ZETIA 10 MG PO (22:12)
[2025-06-04] MEDS: FARXIGA 10 MG PO (22:12)
[2025-06-04] MEDS: TYLENOL 650 MG PO (22:13)
[2025-06-05] VITALS (34 sets, daily range): BP systolic 95–126; BP diastolic 36–78; PULSE 67–68; BMI 23.0
--- NOTE | 2025-06-05 01:36 | PTCARENOTE ---
Pt reassessed. PRN tylenol for MCLEOD - see MAR, effective. NIH remains 0.
[2025-06-05 03:20] LABS: Hematocrit 41.2 % (37.0-47.0); Hemoglobin 14.0 g/dL (12.0-16.0); Mean Corp Hgb Conc. 34.0 g/dL (33.0-37.0); Mean Corpuscular Volume 89.0 fL (81.0-99.0); Platelet Count 164 10^3/uL (130-400); Red Cell Dist. Width 16.8 % (11.5-14.5)
[2025-06-05 03:34] LABS: INR 0.97; PT 13.4 Sec (11.4-14.6)
[2025-06-05 03:35] LABS: APTT 25.1 Sec (23.4-35.0)
[2025-06-05 03:47] LABS: Blood Urea Nitrogen 20 mg/dl (7-17); Calcium 9.5 mg/dl (8.4-10.2); Carbon Dioxide 23 mmol/L (22-30); Chloride 109 mmol/L (98-107); Estimated Creatinine Clearance 56 ml/min; Glucose 109 mg/dl (70-99); HDL Cholesterol 68 mg/dl; LDL Cholesterol, Calculated 65 mg/dl; Potassium 4.2 mmol/L (3.5-5.1); Sodium 138 mmol/L (135-145); Very Low Density Lipoprotein 12 mg/dl (0-30); eGFR > 60.00
--- NOTE | 2025-06-05 05:51 | PTCARENOTE ---
Pt ambulating to bathroom to void. No change in assessment.
--- NOTE | 2025-06-05 07:10 | PTCARENOTE ---
Handoff NIH-0. She is very pleasant and has complete resolution of her symptoms. She denies headache & any other discomfort. Left AC IV site flushed and patent. Right upper extremity limb alert maintained. Knee-hi SCD's maintained. Lungs CTA. Good
peripheral pulses. She was informed to notify me if she feels SOB, dizzy or has a severe headache. She nodded her head in understanding. Safe environment maintained.
[2025-06-05] MEDS: NSS (PRESERVATIVE FREE) 10 ML IV (09:07)
[2025-06-05] MEDS: PROTONIX IV 40 MG IV (09:07)
[2025-06-05] MEDS: COMPAZINE 10 MG PO (09:11)
[2025-06-05 09:32] LABS: Glycohemoglobin (HgbA1c) 5.8 % (4.0-5.6)
--- NOTE | 2025-06-05 09:55 | W.PN.NEURO.1 ---
Addendum entered and electronically signed by Juanjose Reaves MD 06/05/25 10:51:
Studies reviewed.
I have personally examined the patient. I reviewed and agree with the FLIGHT TECHNICIAN's Note.
My addenda:
Awake, alert, interactive. No acute distress.
Speech intact.
Follows 2-step requests w/o difficulty. No tremor.
Extra-ocular movements grossly intact.
Facial movements full and symmetric. Hearing intact to normal conversational volume.
Normal UE movements bilaterally.
Neck: full ROM.
Chest: no dyspnea
Heart: no JVD
Ext: (-) Clubbing, (-) Cyanosis, (-) Edema
IMPRESSIONS/RECOMMENDATIONS:
Abrupt onset of aphasia with CTP demonstrating evidence for left middle cerebral artery acute ischemic stroke
Provide patient with combination of aspirin and clopidogrel beginning 24 hours after tenecteplase
Check efficacy of clopidogrel after 4 doses by means of P2Y12 testing ([employer]) which may be performed after discharge as the patient may have developed anemia with the use of both aspirin and clopidogrel previously and may return to having same
with the combination being restarted
Continue combination of atorvastatin and Ezetimibe
Goal of normotension starting 24 hours after stroke onset
Appreciate vascular surgery evaluation and patient should have routine follow-up in approximately 6 months to ensure absence of fibromuscular dysplasia in the left internal carotid artery
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
D/W patient
Will continue to follow patient as needed.
Original Note:
Documented by User: Sol Hernandez NP 06/05/25 10:15
Today's Communication / Plan
-
.
Neuro Assessment/Plan
Assessment
IMPRESSIONS/RECOMMENDATIONS:
Abrupt onset of change in mental status in the form of aphasia both receptive and expressive. 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 CT angiogram was read officially as suggesting left M2 occlusion. Based on studies now
demonstrating lack of improvement significantly with mechanical thrombectomy, patient would not be a candidate for that procedure at that distal location. Patient was however a candidate for tenecteplase and received that medication. CTA head/neck
is suggestive of L iCA FMD. Patient was on DAPT previously but had recently stopped clopidogrel one month ago due to anemia which has now resolved. She was scheduled to have a colonoscopy today.
-CT Head 06/04/25: No CT evidence of acute intracranial abnormality. ASPECT score: 10.
-CTA Head/Neck 06/04/25: There is an abrupt cut off of left insular M2 branch artery. No evidence for M1 large vessel occlusion or high-grade stenosis. Calcification involving the left carotid bulb and proximal left ICA with measured diameter
reduction of 48%, just less than hemodynamically significant range. Consider further evaluation with cerebrovascular ultrasound. Findings of the cervical portion of the left ICA, considered fairly characteristic for fibromuscular dysplasia. No
evidence for associated high-grade stenosis. Calcification of the cavernous internal carotid arteries bilaterally. On the left, narrowing appears to be in the range of 50% diameter reduction, and could be hemodynamically significant. No significant
narrowing of the vertebral or basilar arteries. Luminal irregularity of the left posterior cerebral artery, with suggestion of mild to moderate narrowing.
-CT Perfusion 06/04/25: CBF Mismatch 52cc, ratio 14.0
-Carotid Ultrasound 06/04/25: Right carotid: Mixed calcified and noncalcified plaque within the bulb and proximal ICA. Any stenosis is less than 50% based upon velocity criteria. Left carotid: Calcified plaque within the bulb and proximal ICA. Any
stenosis is less than 50% based upon velocity criteria. Antegrade flow within the vertebral arteries.
-TTE 06/04/25: EF 27.2%. Multiple left ventricular segmental wall motion abnormalities are noted, as described below. Right ventricular cavity size is within normal limits. Stage I diastolic dysfunction suggestive of abnormal relaxation. No
significant valve disease. Compared to the prior on 08/31/2023, systolic function appears normal with similar regional wall motion abnormality. Stage III diastolic dysfunction and moderate pulmonary hypertension has improved.
Plan
-CT Head noncontrast today at 1100 for 24 hour stabilization check. If no evidence of hemorrhage on CT head, would start aspirin 81mg and clopidogrel 75mg daily and continue this indefinitely for now.
-Allow for permissive hypertension up to 220/120 for the first 24 hours, then goal normotension.
-MRI brain pending, unclear if this will be able to be obtained due to ICD.
-Vascular surgery to follow L ICA FMD surveillance imaging as an outpatient.
-Will need Cardiology evaluation, this could possibly be done as an outpatient if they have timely outpatient availability.
-LDL goal <70. LDL is 65. Continue home atorvastatin 80mg and ezetimibe 10mg daily as LDL is at goal.
-Goal normoglycemia, hbA1c is 5.8.
-NIHSS and neurological checks per unit guidelines.
-Provide patient with a stroke education packet.
-PT/OT/ST evaluations.
Subjective/Objective
Subjective Data
Date of Service: June 05, 2025
Patient with resolution of stroke symptoms following TNK administration on 06/04/25. Today, she notes feeling like her usual self. She endorses a 3-4/10 headache which she describes as pressure on the top of her head. She has a history of migraines
and ocular migraines, this does not feel similar. She denies any dizziness, vision changes, speech/swallow difficulty, numbness, and weakness. She can now verbally express that yesterday morning she was getting dressed to go to an exercise class
when suddenly she 'could not find her right arm.' She reports finally finding it, but then didn't seem able to use it to perform tasks. Upon speaking to people, she notes that she understood what was being asked of her but she couldn't find the
words or perform the tasks.
Objective Data
Vital Signs
Temp Pulse Resp BP Pulse Ox
97.9 F 66 17 108/51 97
06/05/25 07:37 06/05/25 09:00 06/05/25 09:00 06/05/25 08:02 06/05/25 09:00
Lab Results
06/05/25 03:07
06/05/25 03:07
PT 13.4 Sec (11.4-14.6) 06/05/25 03:07
INR 0.97 06/05/25 03:07
APTT 25.1 Sec (23.4-35.0) 06/05/25 03:07
Sodium 138 mmol/L (135-145) 06/05/25 03:07
Potassium 4.2 mmol/L (3.5-5.1) 06/05/25 03:07
BUN 20 mg/dl (7-17) H 06/05/25 03:07
Glucose 109 mg/dl (70-99) H 06/05/25 03:07
Calcium 9.5 mg/dl (8.4-10.2) 06/05/25 03:07
LDL Cholesterol, Calc 65 mg/dl 06/05/25 03:07
Patient Allergies
diazepam (From Valium) Allergy (Verified 09/15/23 06:42)
Unknown
promethazine (From Phenergan) Allergy (Verified 09/15/23 06:42)
Unknown
LDL Level: <70, continue statin
Review of Systems
-
History Source: Patient
EENT: Negative Blurry Vision, Decreased Vision or Swallowing Difficulty
Respiratory: Negative Cough or Trouble Breathing
Cardiac: Negative Chest Pain or Palpitations
Abdomen/GI: Negative Nausea
Neuro: Headache; Negative Dizzy, Weakness, Numbness, Ataxia, Tremors or Speech Problem
Physical Exam
-
General: Well Developed, Well Nourished and No Apparent Distress
Eyes: No Ptosis and PERRLA
HEENT: Normocephalic and Atraumatic
Neck: Full Range of Motion
Respiratory: No Dyspnea
GI: Non-distended
Extremities: No Clubbing, No Cyanosis and No Edema
Psych: Unremarkable
Extended Neurological Exam
Mood & Affect: Mood Unremarkable and Affect Unremarkable
Attention Span & Concentration: Awake, Alert and Interactive
Memory: Unremarkable and Able to Recall
Tremor: Hand Tremor Absent and Head Tremor Absent
Involuntary Movement: None
Speech: Quality Unremarkable, Quantity Unremarkable and Rate of Production Unremarkable
Cranial Nerve II: Left Eye: Pupillary Reactivity Unremarkable, Pupillary Size Unremarkable and Visual [place] Intact
Cranial Nerve II: Right Eye: Pupillary Reactivity Unremarkable, Pupillary Size Unremarkable and Visual [place] Intact
Cranial Nerves III, IV, : Extraocular Movement: Extraocular Movement Full in all Directions
Cranial Nerve V: Facial Sensation: Intact to Light Touch
Cranial Nerve VII: Facial Symmetry: Normal Facial Symmetry
Cranial Nerve VIII: Hearing: Unremarkable Hearing to Normal Conversational Volume
Cranial Nerves IX, X: Palate Movement: Palate Elevation Symmetric
Cranial Nerve XI: Shoulder Shrug: Unremarkable
Cranial Nerve XII: Tongue Protusion: Midline
Muscle Strength, Overall: Full Throughout
Muscle Bulk & Tone: Bulk Unremarkable and Tone Unremarkable
Pronator Drift: No Drift in Upper Extremities and No Drift in Lower Extremities
Touch Sensation: Double Simultaneous Stimulation Unremarkable
Coordination: Ggtrae-[id number]-lchtmd Testing Unremarkable
Modified Elmira Score (MRS)
-
Modified Chiquis Scale (mRS): No symptoms
Score: 0
Data Reviewed
-
CT-A: Report Reviewed and Image Reviewed
CT-Perfusion: Report Reviewed and Image Reviewed
CT Head: Report Reviewed and Image Reviewed
MRI Head: Pending
Carotid Ultrasound: Report Reviewed
Labs: Report Reviewed
Lipid Profile: Report Reviewed
HgbA1C: Report Reviewed
Reviewed with: Physician and Patient
Medications
-
Active Medications
Generic Name Dose Route Start Last Admin
Trade Name Freq PRN Reason Stop Dose Admin
Acetaminophen 650 mg 06/04/25 13:02 06/04/25 22:13
Acetaminophen 325 Mg Tablet PO 07/02/25 13:01 650 mg
Q4HPRN PRN Administration
MCLEOD, mild pain, or temp >100.4F
Atorvastatin Calcium 80 mg 06/04/25 18:00 06/04/25 18:23
Atorvastatin (Lipitor) 80 Mg Tablet PO 07/02/25 17:59 80 mg
QPM NOBLE Administration
Dapagliflozin 10 mg 06/04/25 22:00 06/04/25 22:12
Dapagliflozin (Farxiga) 10 Mg Tablet PO 07/02/25 21:59 10 mg
HS NOBLE Administration
Ezetimibe 10 mg 06/04/25 22:00 06/04/25 22:12
Ezetimibe (Zetia) 10 Mg Tablet PO 07/02/25 21:59 10 mg
HS NOBLE Administration
Labetalol HCl 10 mg 06/04/25 13:02
Labetalol Hcl 5 Mg/1 Ml (20 Mg/4 Ml) Injection IV 07/02/25 13:01
Q6HPRN PRN
SBP>180 delfino >105
Pantoprazole Sodium 40 mg 06/05/25 08:00 06/05/25 09:07
Protonix 40 Mg Iv Push IV 07/03/25 07:59 40 mg
DAILY NOBLE Administration
Prochlorperazine Maleate 10 mg 06/05/25 08:31
Prochlorperazine 10 Mg Tablet PO 07/03/25 08:30
Q6HPRN PRN
headache
Sodium Chloride 10 ml 06/05/25 08:00 06/05/25 09:07
Sodium Chloride 0.9% (Preservative Free) 10 Ml Vial IV 07/03/25 07:59 10 ml
DAILY NOBLE Administration
Home Medications
�Medication �Instructions �Recorded
aspirin 81 mg chewable tablet 81 mg PO DAILY #0 tabs 04/04/23
atorvastatin 80 mg tablet 80 mg PO QPM #30 tabs 04/04/23
losartan 25 mg tablet 12.5 mg (1/2 x 25 mg) PO DAILY 04/04/23
Blood pressure #30 tabs
pantoprazole 40 mg tablet,delayed 40 mg PO DAILY #30 tabs 04/04/23
release
spironolactone 25 mg tablet 12.5 mg (1/2 x 25 mg) PO DAILY 30 04/16/23
days #15 tabs
dapagliflozin propanediol 10 mg 10 mg PO HS Diabetes 09/07/23
tablet (Farxiga)
furosemide 20 mg tablet (Lasix) 20 mg PO Q48H Fluid 09/07/23
Retention/Swelling
ezetimibe 10 mg tablet (Zetia) 10 mg PO DAILY High Cholesterol 06/04/25
fluconazole 150 mg tablet 150 mg PO Q3D rash 06/04/25
metoprolol succinate 25 mg 12.5 mg PO DAILY Blood Pressure 06/04/25
tablet,extended release 24 hr
(Toprol XL)

Documented by User: Juanjose Reaves MD 06/05/25 10:47
Modified Elmira Score (MRS)
-
Score: 0
--- NOTE | 2025-06-05 12:29 | W.PN.INTV ---
Today's Communication / Plan
Recommendations
Continue routine post CVA care
Restart antihypertensive
Eventually restart antiplatelets
Outpatient vascular follow-up
Physical therapy/Occupational Therapy
Will wait for CT of the head today-if there is no hemorrhagic conversion transferred to telemetry
If transferred to telemetry critical care team will sign off
Assessment
-
74-year-old woman admitted with confusion. Received tenecteplase due to suspicion for acute CVA. Then transferred to the critical care unit for further hemodynamic monitoring and workup. 06/04/2025
Aphasia/confusion-suspected acute CVA
Status post tenecteplase 06/04/2025
Conditions present prior admission:
Coronary artery disease status post stents
Hyperlipidemia
History of asthma
History of right breast cancer
Chronic systolic heart failure.
Iron deficiency
Assessment and plan:
Neurologically intact
No overnight events
Hemodynamically stable
Neurology deficits resolved.
Unable to get MRI-for CT head.
If CT of the head showed no evidence for hemorrhagic conversion then we will transfer to telemetry.
Restart cardiac medications
Antihypertensive
Echocardiogram ordered showed ejection fraction 27%/multiple left ventricular segmental motion wall abnormalities. Right ventricular cavity size within normal limits. Stage I diastolic dysfunction
No valvular disease. Compared to August 2023 stable LVEF with similar regional wall motion abnormalities. Stage III diastolic dysfunction of pulmonary hypertension improved.
Continue with diet as tolerated
Aspiration precaution
-
Utilize a pneumatic compression device for DVT prophylaxis-pharmacological DVT prophylaxis later today.
-Restart antiplatelets eventually. Plavix was held as the patient has a history of iron deficiency workup ongoing by GI in the outpatient setting-currently will be on hold.
-Vascular has been consulted given the presence of left internal carotic abnormality on CT angiogram.
Recommended outpatient evaluation.
Physical therapy/Occupational Therapy protocol
Transfer to telemetry once CT of the head is performed.
If transferred to telemetry critical care team will sign off

Data review:
CT head 06/04/2025: No acute intracranial abnormality.
-
Perfusion brain CT 06/04/2025:Perfusion abnormality is present involving the posterior and superior insular region, with core perfusion abnormality in the insular region. Larger area of penumbra extending superiorly centered in the left parietal
region.
-
CT angiogram:No evidence for M1 large vessel occlusion or high-grade stenosis.
Calcification involving the left carotid bulb and proximal left ICA with measured diameter reduction of 48%, just less than hemodynamically significant range. Consider further evaluation with cerebrovascular ultrasound.
Findings of the cervical portion of the left ICA, considered fairly characteristic for fibromuscular dysplasia. No evidence for associated high-grade stenosis.
Calcification of the cavernous internal carotid arteries bilaterally. On the left, narrowing appears to be in the range of 50% diameter reduction, and could be hemodynamically significant.
No significant narrowing of the vertebral or basilar arteries.
Luminal irregularity of the left posterior cerebral artery, with suggestion of mild to moderate narrowing.
Subjective Dataa
Subjective Data
Date of Service:
Date of Service: June 05, 2025
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
Subjective:
Only complaint this morning is ocular headache
Denies blurry vision
Denies nausea vomiting
Speech back to normal
Denies any weakness
Review of Systems
GI: Abdominal Pain (n), Nausea (n) and Vomiting (n)
Neuro: Headache, Dizziness (n) and Numbness (n)
Objective Data
Data Reviewed
Vital Signs / I&O / Oxygen:
Vital Signs
Temp Pulse Resp BP Pulse Ox
97.9 F 67 22 102/58 98
06/05/25 11:26 06/05/25 12:15 06/05/25 12:15 06/05/25 12:00 06/05/25 12:15
Intake and Output
06/04/25 06/05/25 06/06/25
06:59 06:59 06:59
Intake Total 480 / 480 240 / 240
Balance 480 / 480 240 / 240
SaO2 98
Physical Exam
General: Comfortable
HEENT: Normocephalic
Cardiovascular: S1-S2
Respiratory: Clear and Non-Labored Respirations
GI: Soft and Non Distended
Neurology: Awake, Alert and No Motor Deficits
Skin: Warm
Labs/Micro/Reports
Lab Data
06/05/25 03:07
06/05/25 03:07
Laboratory Results
06/05/25
03:07
PT 13.4
INR 0.97
APTT 25.1
--- NOTE | 2025-06-05 13:27 | PTCARENOTE ---
s/p MRI. No changes. She was informed that her bleeding precautions were no longer in place. She stated she was just tired and wanted to sleep a little.
--- NOTE | 2025-06-05 15:47 | W.PN.UPDATE ---
Update Note
Progress Note Update
Remains neurologically intact
Brain MRI noted 06/05/2025: Small foci of acute and subacute infarction of the left parietal and occipital lobes. No evidence for hemorrhage
Will transfer to telemetry
Critical care team will sign off
--- NOTE | 2025-06-05 16:26 | W.PN.HOSP.TC ---
Addendum entered and electronically signed by Mayur Blair MD 06/05/25 21:10:
Attending Addendum-
I saw and evaluated the patient. I reviewed the resident�s note and agree with findings and plan as documented in the resident�s note. Sub: Fees that neuro sxs have completely resolved speech intact and RUE weakness resolved. No new neuro sxs. 'Im
guessing i can go home soon right?' Full 12 point ROS reviewed and negative except as documented Exam: Vitals reviewed in chart GEN-NAD heart RRR no MRG lungs clear abd soft LE no edema Neuro AAO x 3 speech fluent MS 5/5 neg cerebellar deficits
Plan:
# Acute CVA:
- CT head negative
- CT-Perfusion: Perfusion abnormality is present involving the posterior and superior insular region, with core perfusion abnormality in the insular region. Larger area of penumbra extending superiorly centered in the left parietal region.
- CTA: abrupt cut off of left insular M2 branch artery. Calcification involving the left carotid bulb and proximal left ICA with measured diameter reduction of 48%, just less than hemodynamically significant range. Findings of the cervical portion
of the left ICA, considered fairly characteristic for fibromuscular dysplasia. No evidence for associated high-grade stenosis. On the left, narrowing appears to be in the range of 50% diameter reduction, and could be hemodynamically significant.
- reviewed with Neurology; not a target for mechanical thrombectomy
- TNK administered in ER
- stable post TNK transfer out of ICU > 24hrs
- post-TNK protocol
- BP goal maintain less than 180/105 x 24 hours; prn Labetalol with parameters. restart PO meds to maintain normotension post 24 hours TNK
- start DAPT 24 hours after TNK
- B/L Carotid US-Any stenosis is less than 50% based upon velocity criteria.
- Echo 06/04-
1.Left ventricular ejection fraction is severely reduced with an ejection fraction of 27.2 %
2. Multiple left ventricular segmental wall motion abnormalities
3. Right ventricular cavity size is within normal limits.
4. Stage I diastolic dysfunction suggestive of abnormal relaxation.
5. No significant valve disease.
6. Compared to the prior on 08/31/2023, systolic function appears normal with similar regional wall motion abnormality.
- routine MRI brain-Small foci of acute to subacute infarction in the left parietal and occipital lobes
- Neurology input appreciated
- PT/OT
- ST
- PMR evaluation if warranted
# Left ICA abnormality
- Vascular consult for L ICA showing FMD-continue Aspirin and Plavix, vascular office follow up in 6 months with repeat CTA head/neck
# CAD s/p stents (2 years ago) - recently taken off plavix cont asa and plavix when able
# Essential HTN
# HLD
- restart BB/ASA/Statin/Losartan/Zetia/Farxiga when able
- recently taken off Plavix- restart due to CVA
#Iron deficiency anemia
- was planned for EGD/Colon 06/05, notified Dr. Padilla
- restart oral PPI
#Chronic HFrEF
- repeat Echo 06/04-EF @ 27% unchanged
- restart Lasix on DC
- cont GDMT
ACP
Patient consented to discuss, was alone, time spent explanation of advance directives, changes in health status, patient�s health care wishes if the patient becomes unable to make health decisions, goals of care, code status, and prognosis 'yeah do
everything for now im pretty good for my age' - 16 minutes
Time spent coordinating care, review of plan of care with resident, personally reviewed previous records in EMR, med rec, labs, radiology, d/w nursing, neuro, family total time documented is exclusive of any additional time listed that was spent in
advance care planning discussion -� 51 minutes
Original Note:
Today's Communication/Plan
-
-Transfer to telemetry
-Continue to monitor patient
-Aspiration precaution
-Follow up Neurology recommendation
-Follow up PT/OT/ST
Assessment / Plan
Assessment / Plan
74 F, with past medical history of HFrEF, Asthma, CAD s/p stent, History of breast cancer, essential HPN, Migraine with aura presented at the ED for confusion, incoherence and� RUE weakness. Neurological assessment at the ER noted�expressive and
receptive aphasia.
#Acute Left CVA
Head CT and Chest Xray: no acute abnormalities
Brain CT: Perfusion abnormality on posterior and superior insular region, with core perfusion abnormality in the insular region. Larger area of penumbra extending superiorly centered in the left parietal region.
Head/Neck CTA: abrupt cut off of left insular M2 branch artery. Possibly fibromuscular dysplasia in cervical portion of the left ICA. Calcification of the cavernous internal carotid arteries bilaterally
Vascular ultrasound: Right and Left carotid plaque, <50% stenosis
ECHO: improved from last ECHO, (-) thrombus observed
Brain MRI: Small foci of acute to subacute infarction in the left parietal and occipital lobes. (-) hemorrhage.
-TNK administered and subsequent resolution of symptoms
-likely thromboembolic
Per neurology: not candidate for mechanical thrombectomy
Per VS: no residual stenosis to warrant angioplasty
-resume aspirin 81mg OD and start plavix 75mg OD after 24 hours,
-Normotension goal after 24 hours
-PT/OT/Speech therapy
-Pneumatic compression DVT prophylaxis
-Aspiration precaution
-Transfer to telemetry
#Hyperlipidemia
-atorvastatin 80mg
-Zetia 10mg
#Essential HPN
-hold losartan
-PRN labetolol Hcl 10mg
#Chronic HFrEF
-Farxiga 10mg
-hold Toprol XL
-hold spironolactone
-hold lasix
#GERD
-Pantoprazole Sodium 40mg
#Headache
-Prochlorperazine Maleate 10mg PRN
DVT prophylaxis: SCD
Full Code
Anticipated Discharge: 24 - 48 hours
Subjective/Interval History
-
Date of Service: June 05, 2025
The patient does not report any weakness, numbness, difficulty speaking, vision changes, dizziness. She had ocular migraine last night, was given tylenol and resolved. She also reported chronic leg neuropathy.
Objective Data
-
Vital Signs:
Vital Signs
Temp Pulse Resp BP Pulse Ox
97.7 F 75 15 95/43 98
06/05/25 15:44 06/05/25 13:16 06/05/25 13:16 06/05/25 12:02 06/05/25 12:15
I&O
06/04/25 06/05/25 06/06/25
06:59 06:59 06:59
Intake Total 480 / 480 240 / 240
Balance 480 / 480 240 / 240
Review of Systems
-
History Source: Patient
Constitutional: Reports Other (Denies fever and weakness)
EENT: Reports Other (Denies changes in vision)
Respiratory: Reports Other (Denies cough, and trouble breathing)
Cardiac: Reports Other (Denies chest pain and palpitations )
Abdomen/GI: Reports Other (Denies abdominal pain and nausea)
Musculoskeletal: Reports Joint Pain (Chronic)
Neuro: Reports Other (Denies weakness, numbness, lightheadedness.)
Physical Exam
-
General: Well Developed, No Apparent Distress, Comfortable and Conversant
HEENT: Normocephalic, Atraumatic, Anicteric, No Ptosis and PERRLA
Respiratory: Clear to Auscultation and Non Labored Respirations
Cardiac: Regular Rhythm
GI: Soft, Nontender, Nondistended and Normal Bowel Sounds
Rectal: Deferred by Provider
Musculoskeletal: No Edema and Other (5/5 muscle strength, full UE ROM)
Skin: Warm
Neuro: AO x 3, No Motor Deficits, Central Nerve's Intact and Other ((-) facial asymmetry, fluent speech, able to follow 2 prompt command)
Psych: Calm
--- NOTE | 2025-06-05 17:58 | PTCARENOTE ---
Pt took a short nap. She is ambulatory to the BR. Neurologically the same. Ambulatory in the room. Safe environment maintained.
[2025-06-05] MEDS: LIPITOR 80 MG PO (18:14)
--- NOTE | 2025-06-05 18:37 | TRANSFER ---
Report given to Misael ESPINOZA for room 419-1. She will be taken monitored in wheelchair.
[2025-06-05] MEDS: LOW STRENGTH ASPIRIN 81 MG PO (19:06)
[2025-06-05] MEDS: PLAVIX 75 MG PO (19:06)
[2025-06-05 19:32] LABS: Hepatitis C Antibody Negative (Negative)
--- NOTE | 2025-06-05 20:08 | PTCARENOTE ---
Pt transferred to 4W. Pt able to walk from W/C to bed with steady gait. NIH Stroke Scale conducted at bedside with ICU nurse transferring pt. NIH 0. Pt oriented to room, safety measures in place, call velazquez within reach.
[2025-06-05] MEDS: ZETIA 10 MG PO (21:01)
[2025-06-05] MEDS: FARXIGA 10 MG PO (21:01)
--- NOTE | 2025-06-05 21:53 | VATNOTE ---
Did not remove PHS left AC due to post TNK and pt stated she was being discharged tomorrow 06/06.
[2025-06-06 03:31] VITALS: BP 118/69
--- NOTE | 2025-06-06 07:54 | W.PN.NEURO.1 ---
Today's Communication / Plan
-
Vascular surgery to follow L ICA FMD surveillance imaging as an outpatient.
Patient should be provided with aspirin and clopidogrel with a goal of determining after 4 doses of clopidogrel if this medication has efficacy at which time the patient should use monotherapy of clopidogrel as there is borderline efficacy of
aspirin. If efficacy of clopidogrel is inadequate, consider switch to ticagrelor.
Neuro Assessment/Plan
Assessment
IMPRESSIONS/RECOMMENDATIONS:
Abrupt onset of change in mental status in the form of aphasia both receptive and expressive. 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 CT angiogram was read officially as suggesting left M2 occlusion. Based on studies now
demonstrating lack of improvement significantly with mechanical thrombectomy, patient would not be a candidate for that procedure at that distal location. Patient was however a candidate for tenecteplase and received that medication. CTA head/neck
is suggestive of L iCA FMD. Patient was on DAPT previously but had recently stopped clopidogrel one month ago due to anemia which has now resolved. She was scheduled to have a colonoscopy today.
-CT Head 06/04/25: No CT evidence of acute intracranial abnormality. ASPECT score: 10.
-CTA Head/Neck 06/04/25: There is an abrupt cut off of left insular M2 branch artery. No evidence for M1 large vessel occlusion or high-grade stenosis. Calcification involving the left carotid bulb and proximal left ICA with measured diameter
reduction of 48%, just less than hemodynamically significant range. Consider further evaluation with cerebrovascular ultrasound. Findings of the cervical portion of the left ICA, considered fairly characteristic for fibromuscular dysplasia. No
evidence for associated high-grade stenosis. Calcification of the cavernous internal carotid arteries bilaterally. On the left, narrowing appears to be in the range of 50% diameter reduction, and could be hemodynamically significant. No significant
narrowing of the vertebral or basilar arteries. Luminal irregularity of the left posterior cerebral artery, with suggestion of mild to moderate narrowing.
-CT Perfusion 06/04/25: CBF Mismatch 52cc, ratio 14.0
-Carotid Ultrasound 06/04/25: Right carotid: Mixed calcified and noncalcified plaque within the bulb and proximal ICA. Any stenosis is less than 50% based upon velocity criteria. Left carotid: Calcified plaque within the bulb and proximal ICA. Any
stenosis is less than 50% based upon velocity criteria. Antegrade flow within the vertebral arteries.
-TTE 06/04/25: EF 27.2%. Multiple left ventricular segmental wall motion abnormalities are noted, as described below. Right ventricular cavity size is within normal limits. Stage I diastolic dysfunction suggestive of abnormal relaxation. No
significant valve disease. Compared to the prior on 08/31/2023, systolic function appears normal with similar regional wall motion abnormality. Stage III diastolic dysfunction and moderate pulmonary hypertension has improved.
Plan
Vascular surgery to follow L ICA FMD surveillance imaging as an outpatient.
Patient should be provided with aspirin and clopidogrel with a goal of determining after 4 doses of clopidogrel if this medication has efficacy at which time the patient should use monotherapy of clopidogrel as there is borderline efficacy of
aspirin. If efficacy of clopidogrel is inadequate, consider switch to ticagrelor.
Will follow as needed.
Subjective/Objective
Subjective Data
Date of Service: June 06, 2025
Objective Data
Vital Signs
Temp Pulse Resp BP Pulse Ox
36.4 C 70 18 118/69 96
06/06/25 03:31 06/06/25 03:31 06/06/25 03:31 06/06/25 03:31 06/06/25 03:31
PT 13.4 Sec (11.4-14.6) 06/05/25 03:07
INR 0.97 06/05/25 03:07
APTT 25.1 Sec (23.4-35.0) 06/05/25 03:07
Sodium 138 mmol/L (135-145) 06/05/25 03:07
Potassium 4.2 mmol/L (3.5-5.1) 06/05/25 03:07
BUN 20 mg/dl (7-17) H 06/05/25 03:07
Glucose 109 mg/dl (70-99) H 06/05/25 03:07
Calcium 9.5 mg/dl (8.4-10.2) 06/05/25 03:07
LDL Cholesterol, Calc 65 mg/dl 06/05/25 03:07
Patient Allergies
diazepam (From Valium) Allergy (Verified 09/15/23 06:42)
Unknown
promethazine (From Phenergan) Allergy (Verified 09/15/23 06:42)
Unknown
Data Reviewed
-
Labs: Report Reviewed
Reviewed with: Physician
Old Records: Summarized
[2025-06-06 08:00] VITALS: BP 141/55
[2025-06-06] MEDS: PLAVIX 75 MG PO (09:13)
[2025-06-06] MEDS: LOW STRENGTH ASPIRIN 81 MG PO (09:13)
[2025-06-06] MEDS: PROTONIX 40 MG PO (09:13)
[2025-06-06 09:38] LABS: Hematocrit 44.5 % (37.0-47.0); Hemoglobin 15.0 g/dL (12.0-16.0); Mean Corp Hgb Conc. 33.7 g/dL (33.0-37.0); Mean Corpuscular Volume 89.9 fL (81.0-99.0); Platelet Count 161 10^3/uL (130-400); Red Cell Dist. Width 16.6 % (11.5-14.5)
--- NOTE | 2025-06-06 09:55 | VATNOTE ---
Discussed w. Primary RN regarding pre hospital access.
DISPO plan is for today --> discussed w. patient need to replace PHS if pt. is not discharged today.
Will follow up by end of day for line removal and replacement if warranted.
--- NOTE | 2025-06-06 09:56 | CON.MD ---
Documented by User: Lianna Donato MD, Resident 06/12/25 22:04
Consultation - Medical
-
Referring Provider:�Mayur Rod
Chief Complaint:�Acute CVA
�
History of Present Illness:�74-year-old female presenting with right arm dysmetria, word finding difficulty, inability to follow commands, and right visual field loss on 06/04/25. In the ED she was found to have word finding difficulty and be unable
to follow commands. 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
After the patient showered, she found that she was unable to control her right arm and put it into her shirt. After she half dressed she called her nephew who noted she was not her normal self and called 911. In the ED she was also noted to have
word finding difficulty and not be able to follow commands. She also endorses inability to see the right side of her visual field
Neurology was contacted and patient was screened for and then given TNK for acute CVA. CT revealed Lt M2 occlusion not amenable to thrombectomy per Neurology. Of note, patient with recent issue of iron deficiency anemia for which Plavix was stopped
by her [employer] and she was due for EGD/Colon tomorrow with GI to evaluate anemia.
�
Past Medical History:�CAD s/p stents, HLD, reported history of CHF, asthma, history of right breast Cancer
Procedure History:�Cardiac stents
Family History:�Nonpertinent
�
Social History:�
Functional Level Premorbidly: Independent with all activities�
Functional Level Currently:��
PT: Supervision/modified independent mobility without a device. No needs anticipated
OT: Mod I eating, standing, grooming at sink, toileting, and lower body dressing; mod I bed mobility; supervision for shower transfers and distant supervision for other transfers and functional ability in room and bathroom without assistive device.
Good upper body AROM, strength, sensation, coordination, visual acuity, and mobility within functional limits, and cognition grossly intact but not formally assessed. Home with no needs
Tobacco: Denies�
Alcohol: Denies�
Drug use: Denies�
�
Lives with:�Colin
24-hour assistance available:�Yes. Nephkristan has central vision loss due to Stargardt macular degeneration, a genetic syndrome, so he does not drive
Number of floors:�2. Bedroom on first floor
# steps to enter:�6
# steps to second floor:�6
Potential First floor set up:�Yes
Driving:�Yes
Occupation:�Retired
��
�
Allergies:��
�
Allergy/AdvReac Type Severity Reaction Status Date / Time
diazepam (From Valium) Allergy Unknown Verified 09/15/23 06:42
promethazine (From Phenergan) Allergy Unknown Verified 09/15/23 06:42
Review of Systems:�
Constitutional: (x) Normal _no fevers or chills currently, but she thinks that he thought she was warm when she presented to the ED
Eye: (x) Normal _no longer right homonymous hemianopia
Ear/Nose/Throat: (x) Normal _no ear pain
Respiratory: (x) Normal _no shortness of breath
Cardiovascular: (x) Normal _no chest pain
Gastrointestinal: (x) Normal _no diarrhea, constipation, vomiting, or blood in stool
Genitourinary: (x) Normal _�
Musculoskeletal: (x) Normal _Morton neuroma between 2nd and 3rd phalanx. She says she feels it makes her occasionally turn to the left while walking
Integumentary: (x) Normal _�
Neurologic: Resolved 2/10 headache while she was in the ICU after tenecteplase. At the same time, she had an ocular migraine, in which she saw lightening bolts in her right eye
Psychiatric: (x) Normal _�
Endocrine: (x) Normal _�
Hematologic/Lymphatic: (x) Normal _�
Allergic/Immunologic: (x) Normal _�
�
Medications:�
�
Generic Name Dose Route Start Last Admin
Trade Name Freq PRN Reason Stop Dose Admin
Acetaminophen 650 mg 06/04/25 13:02 06/04/25 22:13
Acetaminophen 325 Mg Tablet PO 07/02/25 13:01 650 mg
Q4HPRN PRN Administration
MCLEOD, mild pain, or temp >100.4F
Aspirin 81 mg 06/06/25 08:00 06/06/25 09:13
Aspirin 81 Mg Chewable Tablet PO 07/04/25 07:59 81 mg
DAILY NOBLE Administration
Atorvastatin Calcium 80 mg 06/04/25 18:00 06/05/25 18:14
Atorvastatin (Lipitor) 80 Mg Tablet PO 07/02/25 17:59 80 mg
QPM NOBLE Administration
Clopidogrel Bisulfate 75 mg 06/06/25 08:00 06/06/25 09:13
Clopidogrel 75 Mg Tablet PO 07/04/25 07:59 75 mg
DAILY NOBLE Administration
Dapagliflozin 10 mg 06/04/25 22:00 06/05/25 21:01
Dapagliflozin (Farxiga) 10 Mg Tablet PO 07/02/25 21:59 10 mg
HS NOBLE Administration
Ezetimibe 10 mg 06/04/25 22:00 06/05/25 21:01
Ezetimibe (Zetia) 10 Mg Tablet PO 07/02/25 21:59 10 mg
HS NOBLE Administration
Labetalol HCl 10 mg 06/04/25 13:02
Labetalol Hcl 5 Mg/1 Ml (20 Mg/4 Ml) Injection IV 07/02/25 13:01
Q6HPRN PRN
SBP>180 delfino >105
Pantoprazole Sodium 40 mg 06/06/25 08:00 06/06/25 09:13
Pantoprazole 40 Mg Delayed Release Tablet PO 07/04/25 07:59 40 mg
DAILY NOBLE Administration
Prochlorperazine Maleate 10 mg 06/05/25 08:31
Prochlorperazine 10 Mg Tablet PO 07/03/25 08:30
Q6HPRN PRN
headache
Vitals:�
�
Temp Pulse Resp BP Pulse Ox
97.3 F 64 16 141/55 96
06/06/25 08:00 06/06/25 08:00 06/06/25 08:00 06/06/25 08:00 06/06/25 08:00
Height 5 ft 5 in
Actual Weight 62.8 kg
Body Mass Index (BMI) 23.0
Physical Exam:�
General Appearance/Observation: Well-developed, well-nourished individual in no apparent distress.�
Pain/Comfort Assessment: Denies��
Mood/Affect: Appropriate�
�
Integumentary/Operative Site:�
�� Pressure Ulcer Evaluation: absent over heels.�
�� Other Type of Wound: absent
�
Eyes: Conjunctiva/Lids: normal Pupils: pupils equal round and reactive to light and Accommodation�
Ears/Nose/Throat: oral mucosa moist,� throat clear. Lips/Teeth/Gums: normal�
Neck: No muscle spasm or tenderness�
Cardiovascular: Heart: regular, no murmur�
Pulses: radial 2+ bilaterally�
Respiratory: Respiratory Effort/Chest Expansion: normal Auscultation: Clear to auscultation bilaterally�
Gastrointestinal: abdomen not tender, no distension, normal abdominal bowel sounds�
Genitourinary: No Willard�
Rectal Exam: Deferred�
Extremities: Edema: None Cyanosis: None Trophic changes: None�
Lara neuroma slightly tender to deep palpation
�
Neurology Exam:�
Orientation: Alert, Oriented to self, Time, Place�
Memory: Intact immediately
Higher cortical function�
Repetition: Intact�
Comprehension: Intact�
Two step command: Intact�
Naming: Intact�
�
Cranial Nerves:�
�� CNII: Pupillary light reflex: Intact��� Visual Field: Intact�
�� CN III, IV, : Extraocular muscles: Intact��
�� CN V: Facial Sensation at Forehead: Intact, Maxilla: Intact, Mandible: Intact �
�� CN VII: Facial movement: Symmetric�
�� CN VIII: Hearing: Normal�
�� CN IX/X: Speech & swallow: Normal, Position of Uvula: Midline�
�� CN XI: Shoulder shrug: Symmetric�
�� CN XII: Tongue protrusion: Midline�
�
Sensory:�
�� Light touch: Intact in bilateral upper and lower extremities�
�
Reflexes:�
�� Biceps: 2+ bilaterally�
�� Brachioradialis: 2+ bilaterally�
�� Triceps: 2+ bilaterally�
�� Patellar: 2+ bilaterally�
�� Achilles: 2+ bilaterally�
�� Babinski: Down going bilaterally�
�� Kt: Negative bilaterally�
Cerebellar: Dysmetria/Ataxia: None�
�
Musculoskeletal:�
�
Motor: (Manual muscle scale 0-5)�
Muscle� SA� EF� WE� EE� FF� FA� HF� KE� DF� EHL� PF�
Right��� 5� 5� 5� 5� 5� 5� 5� 5� 5� 5� 5�
Left� 5� 5� 5� 5� 5� 5� 5� 5� 5� 5� 5�
�
Tone: Normal in all extremities�
Range of Motion: Passively within normal limits in all extremities�pain gait:
Gait: Slow
�
Lab Results�
��
06/06/25 09:04
WBC 6.3 10^3/uL (4.8-10.8) 06/06/25 09:04
Hgb 15.0 g/dL (12.0-16.0) 06/06/25 09:04
Hct 44.5 % (37.0-47.0) 06/06/25 09:04
MCV 89.9 fL (81.0-99.0) 06/06/25 09:04
Plt Count 161 10^3/uL (130-400) 06/06/25 09:04
PT 13.4 Sec (11.4-14.6) 06/05/25 03:07
INR 0.97 06/05/25 03:07
Sodium 138 mmol/L (135-145) 06/05/25 03:07
Potassium 4.2 mmol/L (3.5-5.1) 06/05/25 03:07
Chloride 109 mmol/L (98-107) H 06/05/25 03:07
Carbon Dioxide 23 mmol/L (22-30) 06/05/25 03:07
BUN 20 mg/dl (7-17) H 06/05/25 03:07
Creatinine 0.8 mg/dL (0.6-1.0) 06/05/25 03:07
eGFR > 60.00 06/05/25 03:07
Glucose 109 mg/dl (70-99) H 06/05/25 03:07
Hemoglobin A1c 5.8 % (4.0-5.6) H 06/05/25 03:07
Calcium 9.5 mg/dl (8.4-10.2) 06/05/25 03:07
Total Bilirubin Cancelled 06/04/25 11:33
AST Cancelled 06/04/25 11:33
ALT Cancelled 06/04/25 11:33
Alkaline Phosphatase Cancelled 06/04/25 11:33
Total Protein Cancelled 06/04/25 11:33
Albumin Cancelled 06/04/25 11:33
Diagnostic Results: as per HPI�
�
Assessment�
Ms. Samantha Cortes is a 74-year-old female who had a left M2 occlusion with right upper extremity dysmetria, word finding difficulty, inability to follow commands. After tenecteplase, she no longer has those deficits. OT and PT evaluations
determined she has no rehab needs and they recommend that she be discharged home.
Plan��
PM&R PT/OT to increase independence with ADLs, improve balance, coordination, endurance, strength, mobility, community reintegration, decreased burden of care on others and family education.�
�
CVA: Secondary prophylaxis with aspirin 81 mg p.o. daily, clopidogrel 75 mg p.o. daily, atorvastatin 80 mg p.o. every afternoon, and blood pressure control (SBP less than 180 and diastolic less than 100 to participate with therapy for ischemic
stroke). Continue to monitor neurologic status.��
HTN: monitor closely�
HLD: Atorvastatin 80 mg p.o. every afternoon, ezetimibe 10 mg p.o. daily
Coronary artery disease : Aspirin 81 mg p.o. daily, atorvastatin 80 mg p.o. every afternoon, labetalol 10 mg IV every 6 hours as needed
CHF: EF 27.2%, labetalol see above, monitor fluid status�
�
DM II: Accu-Cheks, insulin sliding scale, metformin, aspart, lantus.��Dapagliflozin 10 mg p.o. nightly
Skin: monitor for pressure sores/rashes/lesions.�
Pain: acetaminophen or oxycodone as needed.�
Bowel: Colace and Senna, PRN bisacodyl.�
Bladder: Time void, PVRs, PRN straight cath.�
GI Prophylaxis: Pantoprazole�
DVT Prophylaxis: Note chemoprophylaxis (or if not SCDs and when chemotherapy prophylaxis can start).�
Pulmonary: Incentive spirometry�
Safety: Continue to reinforce assistance with all transfers.�
Code Status:� Full code
Dispo (date/plan/equipment needs): Home with family care.� Social history reviewed.�
�
Functional and Medical Goals: Modified Independent with ADL�s, ambulation, transfers�
�
SUMMARY�
�
Discharge Destination: Home�
�
Summary of recommendations:�
- Discharge Destination: Home�
- Blood pressure must be less than 180 systolic and 100 diastolic for 24 hours before being stable for transfer to SNF/acute rehab.
- Please give blood pressure parameters.�
- Please comment on dvt chemoprophylaxis restrictions.�
��
Will continue to follow patient.�
Thank you for allowing me to care for your patient. Please contact me with any questions or concerns.�
�
This note was dictated using a voice recognition system. Please excuse any typographical errors from driver/merchandiser. If you believe there are any discrepancies, please notify our office.�
�
Consultation
-
Date/Time Consultation Requested: 06/04/25
Date/Time Consultation Performed: 06/06/2025
Requesting Provider: Mayur Rod
Performing Provider: Juanjose Preston
Reason for Consultation: Stroke

Documented by User: Juanjose Huitron MD 06/06/25 15:31
Consultation - Medical
-
Referring Provider:�Mayur Rod
Chief Complaint:�Acute CVA
�
History of Present Illness:�74-year-old female presenting with right arm dysmetria, word finding difficulty, inability to follow commands, and right visual field loss on 06/04/25. In the ED she was found to have word finding difficulty and be unable
to follow commands. 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
After the patient showered, she found that she was unable to control her right arm and put it into her shirt. After she half dressed she called her nephew who noted she was not her normal self and called 911. In the ED she was also noted to have
word finding difficulty and not be able to follow commands. She also endorses inability to see the right side of her visual field
Neurology was contacted and patient was screened for and then given TNK for acute CVA. CT revealed Lt M2 occlusion not amenable to thrombectomy per Neurology. Of note, patient with recent issue of iron deficiency anemia for which Plavix was stopped
by her [employer] and she was due for EGD/Colon tomorrow with GI to evaluate anemia.
�
Past Medical History:�CAD s/p stents, HLD, reported history of CHF, asthma, history of right breast Cancer
Procedure History:�Cardiac stents
Family History:�Nonpertinent
�
Social History:�
Functional Level Premorbidly: Independent with all activities�
Functional Level Currently:��
PT: Supervision/modified independent mobility without a device. No needs anticipated
OT: Mod I eating, standing, grooming at sink, toileting, and lower body dressing; mod I bed mobility; supervision for shower transfers and distant supervision for other transfers and functional ability in room and bathroom without assistive device.
Good upper body AROM, strength, sensation, coordination, visual acuity, and mobility within functional limits, and cognition grossly intact but not formally assessed. Home with no needs
Tobacco: Denies�
Alcohol: Denies�
Drug use: Denies�
�
Lives with:�Nephkristan
24-hour assistance available:�Yes. Nephew has central vision loss due to Stargardt macular degeneration, a genetic syndrome, so he does not drive
Number of floors:�2. Bedroom on first floor
# steps to enter:�6
# steps to second floor:�6
Potential First floor set up:�Yes
Driving:�Yes
Occupation:�Retired
��
�
Allergies:��
�
Allergy/AdvReac Type Severity Reaction Status Date / Time
diazepam (From Valium) Allergy Unknown Verified 09/15/23 06:42
promethazine (From Phenergan) Allergy Unknown Verified 09/15/23 06:42
Review of Systems:�
Constitutional: (x) Normal _no fevers or chills currently, but she thinks that he thought she was warm when she presented to the ED
Eye: (x) Normal _no longer right homonymous hemianopia
Ear/Nose/Throat: (x) Normal _no ear pain
Respiratory: (x) Normal _no shortness of breath
Cardiovascular: (x) Normal _no chest pain
Gastrointestinal: (x) Normal _no diarrhea, constipation, vomiting, or blood in stool
Genitourinary: (x) Normal _�
Musculoskeletal: (x) Normal _Morton neuroma between 2nd and 3rd phalanx. She says she feels it makes her occasionally turn to the left while walking
Integumentary: (x) Normal _�
Neurologic: Resolved 2/10 headache while she was in the ICU after tenecteplase. At the same time, she had an ocular migraine, in which she saw lightening bolts in her right eye
Psychiatric: (x) Normal _�
Endocrine: (x) Normal _�
Hematologic/Lymphatic: (x) Normal _�
Allergic/Immunologic: (x) Normal _�
�
Medications:�
�
Generic Name Dose Route Start Last Admin
Trade Name Freq PRN Reason Stop Dose Admin
Acetaminophen 650 mg 06/04/25 13:02 06/04/25 22:13
Acetaminophen 325 Mg Tablet PO 07/02/25 13:01 650 mg
Q4HPRN PRN Administration
MCLEOD, mild pain, or temp >100.4F
Aspirin 81 mg 06/06/25 08:00 06/06/25 09:13
Aspirin 81 Mg Chewable Tablet PO 07/04/25 07:59 81 mg
DAILY NOBLE Administration
Atorvastatin Calcium 80 mg 06/04/25 18:00 06/05/25 18:14
Atorvastatin (Lipitor) 80 Mg Tablet PO 07/02/25 17:59 80 mg
QPM NOBLE Administration
Clopidogrel Bisulfate 75 mg 06/06/25 08:00 06/06/25 09:13
Clopidogrel 75 Mg Tablet PO 07/04/25 07:59 75 mg
DAILY NOBLE Administration
Dapagliflozin 10 mg 06/04/25 22:00 06/05/25 21:01
Dapagliflozin (Farxiga) 10 Mg Tablet PO 07/02/25 21:59 10 mg
HS NOBLE Administration
Ezetimibe 10 mg 06/04/25 22:00 06/05/25 21:01
Ezetimibe (Zetia) 10 Mg Tablet PO 07/02/25 21:59 10 mg
HS NOBLE Administration
Labetalol HCl 10 mg 06/04/25 13:02
Labetalol Hcl 5 Mg/1 Ml (20 Mg/4 Ml) Injection IV 07/02/25 13:01
Q6HPRN PRN
SBP>180 delfino >105
Pantoprazole Sodium 40 mg 06/06/25 08:00 06/06/25 09:13
Pantoprazole 40 Mg Delayed Release Tablet PO 07/04/25 07:59 40 mg
DAILY NOBLE Administration
Prochlorperazine Maleate 10 mg 06/05/25 08:31
Prochlorperazine 10 Mg Tablet PO 07/03/25 08:30
Q6HPRN PRN
headache
Vitals:�
�
Temp Pulse Resp BP Pulse Ox
97.3 F 64 16 141/55 96
06/06/25 08:00 06/06/25 08:00 06/06/25 08:00 06/06/25 08:00 06/06/25 08:00
Height 5 ft 5 in
Actual Weight 62.8 kg
Body Mass Index (BMI) 23.0
Physical Exam:�
General Appearance/Observation: Well-developed, well-nourished individual in no apparent distress.�
Pain/Comfort Assessment: Denies��
Mood/Affect: Appropriate�
�
Integumentary/Operative Site:�
�� Pressure Ulcer Evaluation: absent over heels.�
�� Other Type of Wound: absent
�
Eyes: Conjunctiva/Lids: normal Pupils: pupils equal round and reactive to light and Accommodation�
Ears/Nose/Throat: oral mucosa moist,� throat clear. Lips/Teeth/Gums: normal�
Neck: No muscle spasm or tenderness�
Cardiovascular: Heart: regular, no murmur�
Pulses: radial 2+ bilaterally�
Respiratory: Respiratory Effort/Chest Expansion: normal Auscultation: Clear to auscultation bilaterally�
Gastrointestinal: abdomen not tender, no distension, normal abdominal bowel sounds�
Genitourinary: No Willard�
Rectal Exam: Deferred�
Extremities: Edema: None Cyanosis: None Trophic changes: None�
Lara neuroma slightly tender to deep palpation
�
Neurology Exam:�
Orientation: Alert, Oriented to self, Time, Place�
Memory: Intact immediately
Higher cortical function�
Repetition: Intact�
Comprehension: Intact�
Two step command: Intact�
Naming: Intact�
�
Cranial Nerves:�
�� CNII: Pupillary light reflex: Intact��� Visual Field: Intact�
�� CN III, IV, : Extraocular muscles: Intact��
�� CN V: Facial Sensation at Forehead: Intact, Maxilla: Intact, Mandible: Intact �
�� CN VII: Facial movement: Symmetric�
�� CN VIII: Hearing: Normal�
�� CN IX/X: Speech & swallow: Normal, Position of Uvula: Midline�
�� CN XI: Shoulder shrug: Symmetric�
�� CN XII: Tongue protrusion: Midline�
�
Sensory:�
�� Light touch: Intact in bilateral upper and lower extremities�
�
Reflexes:�
�� Biceps: 2+ bilaterally�
�� Brachioradialis: 2+ bilaterally�
�� Triceps: 2+ bilaterally�
�� Patellar: 2+ bilaterally�
�� Achilles: 2+ bilaterally�
�� Babinski: Down going bilaterally�
�� Kt: Negative bilaterally�
Cerebellar: Dysmetria/Ataxia: None�
�
Musculoskeletal:�
�
Motor: (Manual muscle scale 0-5)�
Muscle� SA� EF� WE� EE� FF� FA� HF� KE� DF� EHL� PF�
Right��� 5� 5� 5� 5� 5� 5� 5� 5� 5� 5� 5�
Left� 5� 5� 5� 5� 5� 5� 5� 5� 5� 5� 5�
�
Tone: Normal in all extremities�
Range of Motion: Passively within normal limits in all extremities�pain gait:
Gait: Slow
�
Lab Results�
��
06/06/25 09:04
WBC 6.3 10^3/uL (4.8-10.8) 06/06/25 09:04
Hgb 15.0 g/dL (12.0-16.0) 06/06/25 09:04
Hct 44.5 % (37.0-47.0) 06/06/25 09:04
MCV 89.9 fL (81.0-99.0) 06/06/25 09:04
Plt Count 161 10^3/uL (130-400) 06/06/25 09:04
PT 13.4 Sec (11.4-14.6) 06/05/25 03:07
INR 0.97 06/05/25 03:07
Sodium 138 mmol/L (135-145) 06/05/25 03:07
Potassium 4.2 mmol/L (3.5-5.1) 06/05/25 03:07
Chloride 109 mmol/L (98-107) H 06/05/25 03:07
Carbon Dioxide 23 mmol/L (22-30) 06/05/25 03:07
BUN 20 mg/dl (7-17) H 06/05/25 03:07
Creatinine 0.8 mg/dL (0.6-1.0) 06/05/25 03:07
eGFR > 60.00 06/05/25 03:07
Glucose 109 mg/dl (70-99) H 06/05/25 03:07
Hemoglobin A1c 5.8 % (4.0-5.6) H 06/05/25 03:07
Calcium 9.5 mg/dl (8.4-10.2) 06/05/25 03:07
Total Bilirubin Cancelled 06/04/25 11:33
AST Cancelled 06/04/25 11:33
ALT Cancelled 06/04/25 11:33
Alkaline Phosphatase Cancelled 06/04/25 11:33
Total Protein Cancelled 06/04/25 11:33
Albumin Cancelled 06/04/25 11:33
Diagnostic Results: as per HPI�
�
Assessment�
Ms. Samantha Cortes is a 74-year-old female who had a left M2 occlusion with right upper extremity dysmetria, word finding difficulty, inability to follow commands. After tenecteplase, she no longer has those deficits. OT and PT evaluations
determined she has no rehab needs and they recommend that she be discharged home.
Plan��
PM&R PT/OT to increase independence with ADLs, improve balance, coordination, endurance, strength, mobility, community reintegration, decreased burden of care on others and family education.�
�
CVA: Secondary prophylaxis with aspirin 81 mg p.o. daily, clopidogrel 75 mg p.o. daily, atorvastatin 80 mg p.o. every afternoon, and blood pressure control (SBP less than 180 and diastolic less than 100 to participate with therapy for ischemic
stroke). Continue to monitor neurologic status.��
HTN: monitor closely�
HLD: Atorvastatin 80 mg p.o. every afternoon, ezetimibe 10 mg p.o. daily
Coronary artery disease : Aspirin 81 mg p.o. daily, atorvastatin 80 mg p.o. every afternoon, labetalol 10 mg IV every 6 hours as needed
CHF: EF 27.2%, labetalol see above, monitor fluid status�
�
DM II: Accu-Cheks, insulin sliding scale, metformin, aspart, lantus.��Dapagliflozin 10 mg p.o. nightly
Skin: monitor for pressure sores/rashes/lesions.�
Pain: acetaminophen or oxycodone as needed.�
Bowel: Colace and Senna, PRN bisacodyl.�
Bladder: Time void, PVRs, PRN straight cath.�
GI Prophylaxis: Pantoprazole�
DVT Prophylaxis: Note chemoprophylaxis (or if not SCDs and when chemotherapy prophylaxis can start).�
Pulmonary: Incentive spirometry�
Safety: Continue to reinforce assistance with all transfers.�
Code Status:� Full code
Dispo (date/plan/equipment needs): Home with family care.� Social history reviewed.�
�
Functional and Medical Goals: Modified Independent with ADL�s, ambulation, transfers�
�
SUMMARY�
�
Discharge Destination: Home�
�
Summary of recommendations:�
- Discharge Destination: Home�
- Blood pressure must be less than 180 systolic and 100 diastolic for 24 hours before being stable for transfer to SNF/acute rehab.
- Please give blood pressure parameters.�
- Please comment on dvt chemoprophylaxis restrictions.�
��
Will continue to follow patient.�
Thank you for allowing me to care for your patient. Please contact me with any questions or concerns.�
Attending note:
Patient was seen and examined by resident Dr. Donato, and I reviewed with her today and agree with the history, examination and plan as outlined. Patient with CVA and return of full function, and now mod I with mobility and ADLs and stable for
discharge home. Can follow up with Dr. Syed as outpatient if any further deficits or concerns. No needs for acute rehabilitation at this time.
�
This note was dictated using a voice recognition system. Please excuse any typographical errors from driver/merchandiser. If you believe there are any discrepancies, please notify our office.�
�
--- NOTE | 2025-06-06 10:00 | W.PN.HOSP.TC ---
Addendum entered and electronically signed by Mayur Blair MD 06/06/25 21:36:
Attending Addendum-
I saw and evaluated the patient. I reviewed the resident�s note and agree with findings and plan as documented in the resident�s note. Sub: Unique wants to go home. No new neuro sxs. Full 12 point ROS reviewed and negative except as documented
Exam: Vitals reviewed in chart GEN-NAD heart RRR no MRG lungs clear abd soft LE no edema Neuro AAO x 3 speech fluent MS 5/5 neg cerebellar deficits
Plan:
# Acute CVA
- CT head negative
- CT-Perfusion: Perfusion abnormality is present involving the posterior and superior insular region, with core perfusion abnormality in the insular region. Larger area of penumbra extending superiorly centered in the left parietal region.
- CTA: abrupt cut off of left insular M2 branch artery. Calcification involving the left carotid bulb and proximal left ICA with measured diameter reduction of 48%, just less than hemodynamically significant range. Findings of the cervical portion
of the left ICA, considered fairly characteristic for fibromuscular dysplasia. No evidence for associated high-grade stenosis. On the left, narrowing appears to be in the range of 50% diameter reduction, and could be hemodynamically significant.
- reviewed with Neurology; not a target for mechanical thrombectomy
- TNK administered in ER
- stable post TNK
- BP goal maintain less than 180/105 x 24 hours; prn Labetalol with parameters. restart PO meds to maintain normotension post 24 hours TNK
- cont asa plus plavix- 24 hours after TNK
- check verify now as OP for plavix as ASA borderline
- B/L Carotid US-Any stenosis is less than 50% based upon velocity criteria.
- Echo 06/04-
1.Left ventricular ejection fraction is severely reduced with an ejection fraction of 27.2 %
2. Multiple left ventricular segmental wall motion abnormalities
3. Right ventricular cavity size is within normal limits.
4. Stage I diastolic dysfunction suggestive of abnormal relaxation.
5. No significant valve disease.
6. Compared to the prior on 08/31/2023, systolic function appears normal with similar regional wall motion abnormality.
- routine MRI brain-Small foci of acute to subacute infarction in the left parietal and occipital lobes
- Neurology input appreciated
- PT/OT-home
- ST
- PMR evaluation appreciated
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
- Vascular consult for L ICA showing FMD-continue Aspirin and Plavix, vascular office follow up in 6 months with repeat CTA head/neck
# CAD s/p stents (2 years ago) - recently taken off plavix cont asa and plavix
# Essential HTN
# HLD
- restart BB/ASA/Statin/Losartan/Zetia/Farxiga on DC
- recently taken off Plavix- restart due to CVA
#Iron deficiency anemia
- was planned for EGD/Colon 06/05, notified Dr. Padilla
- oral PPI
#Chronic HFrEF
- repeat Echo 06/04-EF @ 27% unchanged
- restart Lasix on DC
- cont GDMT
Time spent coordinating care, DC planning, review of DC plan of care with resident, transition of care, review of records, med rec/scripts sent electronically, consults, notes, d/w consultants, nursing, family, and CM� 31 mins >50% of this time was
devoted to counseling and coordination of care
Original Note:
Today's Communication/Plan
-
-Discharge patient
-on DAPT
-Troplol XL, Losartan, Lasix,Zetia, Atorvastatin, Farxiga as outpatient
-Repeat Platelet Function in 4 days
-per neurology recommendation: if platelet function is adequate 4 days of clopidogrel therapy, continue as monotherapy, if not, consider switching to Ticagrelor.
-Outpatient vascular follow up with CTA results in 6 months
-PMR evaluation as outpatient
Assessment / Plan
Assessment / Plan
74 F, with past medical history of HFrEF, Asthma, CAD s/p stent, History of breast cancer, essential HPN, Migraine with aura presented at the ED for confusion, incoherence and� RUE weakness. Neurological assessment at the ER noted�expressive and
receptive aphasia.
#Acute Left CVA
Head CT and Chest Xray: no acute abnormalities
Brain CT: Perfusion abnormality on posterior and superior insular region, with core perfusion abnormality in the insular region. Larger area of penumbra extending superiorly centered in the left parietal region.
Head/Neck CTA: abrupt cut off of left insular M2 branch artery. Possibly fibromuscular dysplasia in cervical portion of the left ICA. Calcification of the cavernous internal carotid arteries bilaterally
Vascular ultrasound: Right and Left carotid plaque, <50% stenosis
ECHO: improved from last ECHO, (-) thrombus observed
Brain MRI: Small foci of acute to subacute infarction in the left parietal and occipital lobes. (-) hemorrhage.
ECG: Normal Sinus Rhythm, poss. left atrial enlargement, bifascicular block
-TNK administered and subsequent resolution of symptoms
-likely thromboembolic
Per neurology: not candidate for mechanical thrombectomy
Per VS: no residual stenosis to warrant angioplasty
- aspirin 81mg OD and plavix 75mg OD
-per neurology: suggest taking clopidogrel for 4 days, if platelet function is adequate, continue clopidogrel as monotherapy, if not, considering switching to ticagrelor.
-Repeat platelet function in 4 days
-PMR evaluation as outpatient
-Vascular consult in 6 months with repeat CTA head/neck
-PT/OT/Speech therapy
-Aspiration precaution
#Hyperlipidemia
-atorvastatin 80mg
-Zetia 10mg
#Essential HPN
-resume losatan as outpatient
#Chronic HFrEF
-Farxiga 10mg
-resume Toprol XL as outpatient
-resume lasix as outpatient
#GERD
-Pantoprazole Sodium 40mg
#Headache
-Prochlorperazine Maleate 10mg PRN
DVT prophylaxis: SCD
Full Code
Anticipated Discharge: Today
Subjective/Interval History
-
Date of Service: June 06, 2025
Reports chronic tingling on both hands. Denies lightheadedness, syncope, weakness, changes in vision and sensorium.
Objective Data
-
Labs:
Laboratory Results
06/06/25
09:04
WBC 6.3
Hgb 15.0
Hct 44.5
Plt Count 161
Sodium Pending
Potassium Pending
Chloride Pending
Carbon Dioxide Pending
BUN Pending
Creatinine Pending
Glucose Pending
Calcium Pending
Vital Signs:
Vital Signs
Temp Pulse Resp BP Pulse Ox
97.3 F 64 16 141/55 96
06/06/25 08:00 06/06/25 08:00 06/06/25 08:00 06/06/25 08:00 06/06/25 08:00
I&O
06/05/25 06/06/25 06/07/25
06:59 06:59 06:59
Intake Total 480 / 480 720 / 720
Balance 480 / 480 720 / 720
Review of Systems
-
History Source: Patient
Constitutional: Reports Other (Denies fever and weakness)
EENT: Reports Other (Denies changes in vision)
Respiratory: Reports Other (Denies cough, and trouble breathing)
Cardiac: Reports Other (Denies chest pain and palpitations )
Abdomen/GI: Reports Other (Denies abdominal pain and nausea)
Musculoskeletal: Reports Joint Pain (Chronic)
Neuro: Reports Numbness (LE, chronic) and Other ((+) chronic tingling in both hands. Denies weakness, lightheadedness)
Physical Exam
-
General: Well Developed, No Apparent Distress, Comfortable and Conversant
HEENT: Normocephalic, Atraumatic, Anicteric, No Ptosis and PERRLA
Respiratory: Clear to Auscultation and Non Labored Respirations
Cardiac: Regular Rhythm
GI: Soft, Nontender, Nondistended and Normal Bowel Sounds
Rectal: Deferred by Provider
Musculoskeletal: No Edema and Other (5/5 muscle strength, full UE ROM)
Skin: Warm
Neuro: AO x 3, No Motor Deficits, Central Nerve's Intact and Other ((-) facial asymmetry, fluent speech)
Psych: Calm
[2025-06-06 11:32] VITALS: BP 123/61; PULSE 71; O2SAT 99
[2025-06-06 11:43] LABS: Blood Urea Nitrogen 18 mg/dl (7-17); Calcium 9.9 mg/dl (8.4-10.2); Carbon Dioxide 26 mmol/L (22-30); Chloride 108 mmol/L (98-107); Estimated Creatinine Clearance 64 ml/min; Glucose 99 mg/dl (70-99); Potassium 4.3 mmol/L (3.5-5.1); Sodium 139 mmol/L (135-145); eGFR > 60.00
[2025-06-06 11:45] VITALS: BP 123/61
--- NOTE | 2025-06-06 12:57 | PTOTSP ---
pt is capable of completing simple ADLs, functional transfers, ambulation with no assistance. completed BCAT, pt score WNL for her age and situation. no further acute OT needs identified at this time, will sign off.
--- NOTE | 2025-06-06 14:28 | PN.CDI ---
CDI
- -
CDI:
Physician Documentation Request
Admit Date: 06/04/25 12:39
Dear Doctor,
Please review the following and provide your response in the progress notes.
Clinical Indicators:
The diagnosis of bifascicular block was included in the signed 06/04 EKG
Additional clinical indicators in the chart include:
- 06/04 EKG 'Bifascicular block'
- Right bundle branch block
- Left anterior fascicular block
Please indicate in your progress notes if you are in agreement that the above diagnosis is valid for this patient:
____ - Bifascicular block is a valid diagnosis (Please include it in your progress notes)
____ - Bifascicular block is not a valid diagnosis for this patient
____ - Other (please specify)
Use of terms such as suspected, likely, concern for, or probable are acceptable for a diagnosis that is being evaluated, monitored or treated as if it exists and can be coded in the inpatient setting, when documented at the time of discharge.
Thank you,
Veronica Trent RN
CDI Specialist
Please use your independent medical judgment in providing your response.
[2025-06-06 15:30] VITALS: BP 128/55
--- NOTE | 2025-06-06 15:44 | CM ---
CM reviewed chart, patient seen bedside, for discharge today. Patient denies needs for home, confirms transport from . IMM verbally reviewed, provided with copy, placed in chart. CM will continue to follow for all discharge planning needs.
Plan; home no needs
--- NOTE | 2025-06-06 15:46 | CM ---
CM reviewed chart, patient seen bedside, for discharge today. Patient denies needs for home, confirms transport home. IMM verbally reviewed, provided with copy, placed in chart. CM will continue to follow for all discharge planning needs.
Plan; home no needs
--- NOTE | 2025-06-06 17:27 | W.DCSUMMARY ---
Addendum entered and electronically signed by Mayur Blair MD 06/06/25 21:37:
Read, reviewed, and agree. See same day progress note for additional details.
Bry Blair MD
Original Note:
Documented by User: Janeth Neal MD, Resident 06/06/25 18:55
Discharge Summary
Discharge Data
Date of Admission: 06/04/25
Date of Discharge: 06/06/25
-
Pending Results: No
Hospital Course
Discharging Physician : Mayur Blair MD, Janeth Neal MD
Disposition : Home
Primary care physician : Laura Sawant MD
Principal Discharge diagnosis : Acute Cerebrovascular Accident
Chronic Discharge diagnosis : Heart failure with reduced ejection fraction, Essential Hypertension
Hospital Course :
74 year old female, with past medical history of HFrEF, Asthma, CAD s/p stent, History of breast cancer, essential HPN, Migraine with aura presented at the ED for confusion, incoherence and� RUE weakness.
The patient was brought to emergency room for evaluation of CVA. There was no motor deficit but there was expressive aphasia noted. Neurology consulted emergently and evaluated the patient, tenecteplase was provided for suspicion of acute CVA.
The following problems were addressed during this admission:
#Acute Left CVA
Head CT and Chest Xray: no acute abnormalities
Brain CT: Perfusion abnormality on posterior and superior insular region, with core perfusion abnormality in the insular region. Larger area of penumbra extending superiorly centered in the left parietal region.
Head/Neck CTA: abrupt cut off of left insular M2 branch artery. Possibly fibromuscular dysplasia in cervical portion of the left ICA. Calcification of the cavernous internal carotid arteries bilaterally
Vascular ultrasound: Right and Left carotid plaque, <50% stenosis
ECHO: improved from last ECHO, (-) thrombus observed
Brain MRI: Small foci of acute to subacute infarction in the left parietal and occipital lobes. (-) hemorrhage.
-TNK administered and subsequent resolution of symptoms
-likely thromboembolic
Per neurology: not candidate for mechanical thrombectomy
Per VS: no residual stenosis to warrant angioplasty
- aspirin 81mg OD and plavix 75mg OD started 24 hours after TNK administration
-permissive hypertension allowed in first 24 hours, then normotension goal resumed
-as platelet function was found to be inadequate during admission, per neurology: suggest taking clopidogrel for 4 days, if platelet function is adequate, continue clopidogrel as monotherapy, if not, considering switching to ticagrelor.
-Repeat platelet function in 4 days as outpatient
-PMR evaluation as outpatient
-Vascular consult in 6 months with repeat CTA head/neck
-PT/OT/Speech therapy provided
-Aspiration precaution observed
#Hyperlipidemia
-atorvastatin 80mg
-Zetia 10mg
#Essential HPN
-resume losatan as outpatient
#Chronic HFrEF
-Farxiga 10mg
-resume Toprol XL as outpatient
-resume lasix as outpatient
#GERD
-Pantoprazole Sodium 40mg
#Headache
-Prochlorperazine Maleate 10mg PRN
Important imaging findings :
Head CT (06/04/2025): There is no evidence of cranial mass lesion or mass effect, with no midline shift.
There is no evidence for acute intracranial hemorrhage.
Mild age expected atrophy in this 74-year-old. The callosal angle appears normal. No abnormal extra-axial collection is identified.
Ramos and white matter differentiation appears within normal limits. There is no CT evidence for a focal area of acute to subacute infarction.
IMPRESSION:
No CT evidence of acute intracranial abnormality.
ASPECT score: [address] (06/04/2025): Perfusion abnormality is present involving the posterior and superior insular region, with core perfusion abnormality in the insular region. Larger area of penumbra extending superiorly centered in the left parietal region.
Head/Neck CTA (06/04/2025): FINDINGS: Intravenous contrast-enhanced CT angiography of the head and neck is performed, and images obtained from the upper chest throughout the head. Source axial images are reviewed as well as 3-D volume and
multiplanar reconstructions.
In the intracranial circulation, there is no evidence for large vessel occlusion or high-grade stenosis involving the M1 portions of the middle cerebral arteries bilaterally.
There is however an abrupt cut off of left M2 branch within the posterior aspect of the insula, which is a new finding compared to previous CT angiography of the head and neck. Diminished flow within the more superior peripheral vessels in the left
MCA distribution when compared to the right side, with moderate collateral flow.
Normal appearance of the anterior cerebral arteries.
No evidence for aneurysmal dilation of the visualized superior thoracic aorta.
No significant narrowing involving the right brachiocephalic artery origin or the left common carotid artery origin. There is moderate calcification involving the proximal left subclavian artery origin, but appears to result in less than 50%
diameter reduction. Mild calcification at the origin of the right subclavian artery with less than 25% diameter reduction.
Moderate calcification of the mid right common carotid artery with less than 25% diameter reduction. Calcification and luminal irregularity involving the right carotid bulb and proximal right ICA with less than 25% diameter reduction. Mild to
moderate narrowing at the origin of the right external carotid artery. No significant narrowing involving the cervical portion of the right ICA.
No significant calcification or narrowing involving the left common carotid artery. There is a moderate to large amount of calcification involving the left carotid bulb and proximal left ICA. Measured diameter reduction of 48%, just slightly less
than hemodynamically significant stenosis.
Of note, there is deviated appearance of the proximal to midportion of the left cervical ICA, with appearance highly suggestive of fibromuscular dysplasia. No evidence for a focal high-grade stenosis within this region of probable fibromuscular
dysplasia.
No significant narrowing involving the petrous portions of the internal carotid arteries bilaterally.
Mild calcification of the right cavernous ICA with less than 50% diameter reduction. Mild to moderate calcification of the left cavernous ICA, and horizontal portion appears to have narrowing in the range of 50% diameter reduction.
No significant narrowing involving the supraclinoid portions of the internal carotid arteries bilaterally.
Both vertebral arteries originate from the subclavian arteries. Codominant vertebral arteries. No evidence for significant focal narrowing of the vertebral arteries with no evidence for dissection and no findings that would be suggestive of
fibromuscular dysplasia. There is no significant narrowing of the basilar artery. There is a right-sided posterior inferior cerebellar artery branch from the superior right vertebral artery. There are small caliber anterior-inferior cerebellar
artery branches from the basilar artery. Superior cerebellar arteries are patent.
No significant narrowing of the right posterior cerebral artery. Mild to moderate luminal irregularity of the T2 portion of the left posterior cerebral artery, with no evidence of a high-grade stenosis.
There is no CT angiographic evidence for intracranial aneurysm.
Changes of degenerative disc disease, greatest at C5-6 and C6-7.
Heterogeneity of the right lobe of the thyroid, including a posterior nodule which has diameter of approximately 9 mm. In a 74-year-old with incidentally detected thyroid nodule less than 13 mm, no further imaging follow-up is generally recommended.
Visualized upper lungs appear clear.
Automatic exposure control radiation dose reduction technology was utilized.
IMPRESSION: There is an abrupt cut off of left insular M2 branch artery.
No evidence for M1 large vessel occlusion or high-grade stenosis.
Calcification involving the left carotid bulb and proximal left ICA with measured diameter reduction of 48%, just less than hemodynamically significant range. Consider further evaluation with cerebrovascular ultrasound.
Findings of the cervical portion of the left ICA, considered fairly characteristic for fibromuscular dysplasia. No evidence for associated high-grade stenosis.
Calcification of the cavernous internal carotid arteries bilaterally. On the left, narrowing appears to be in the range of 50% diameter reduction, and could be hemodynamically significant.
No significant narrowing of the vertebral or basilar arteries.
Luminal irregularity of the left posterior cerebral artery, with suggestion of mild to moderate narrowing.
Percent stenosis is calculated using NASCET criteria.
Chest X-Ray (06/04/2025): FINDINGS:
Lines and tubes: Stable left chest wall cardiac device with intact leads overlying the right heart.
Lungs: No convincing focal infiltrates. No significant pleural effusions. No visualized pneumothorax.
Heart: Cardiac and mediastinal contours are unremarkable. Coronary artery stent redemonstrated. No overt pulmonary vascular congestion.
Osseous structures: No acute abnormalities.
IMPRESSION:
No acute cardiopulmonary process.
Vascular Ultrasound (
RIGHT:
Common Carotid Artery:
Prox: PSV: 75 cm/s EDV: 16 cm/s
Mid: PSV: 77 cm/s EDV: 17 cm/s
Distal: PSV: 67 cm/s EDV: 15 cm/s
External Carotid Artery:
PSV: 140 cm/s
Internal Carotid Artery:
Prox: PSV: 85 cm/s EDV: 16 cm/s
Mid: PSV: 132 cm/s EDV: 38 cm/s
Distal: PSV: 106 cm/s EDV: 27 cm/s
ICA/CCA Ratio: 1.72 Prior:1.25
Vertebral Artery:
PSV: 53 cm/s Flow:Antegrade
LEFT:
Common Carotid Artery:
Prox: PSV: 87 cm/s EDV: 15 cm/s
Mid: PSV: 84cm/s EDV: 18 cm/s
Distal: PSV: 79 cm/s EDV: 16cm/s
External Carotid Artery:
PSV: 117 cm/s
Internal Carotid Artery:
Prox: PSV: 107 cm/s EDV: 28 cm/s
Mid: PSV: 126 cm/s EDV: 30 cm/s
Distal: PSV: 159 cm/s EDV: 36 cm/s
ICA/CCA Ratio: 1.89
Vertebral Artery:
PSV: 37 cm/s Flow:Antegrade
IMPRESSION:
Right carotid: Mixed calcified and noncalcified plaque within the bulb and proximal ICA. Any stenosis is less than 50% based upon velocity criteria.
Left carotid: Calcified plaque within the bulb and proximal ICA. Any stenosis is less than 50% based upon velocity criteria.
Antegrade flow within the vertebral arteries.
ECHOCARDIOGRAM (06/04/2025):
Left Ventricle:
Left ventricular ejection fraction is severely reduced with an ejection fraction of 27.2 % by Mendez's biplane method of discs. There is no left ventricular hypertrophy. Stage I diastolic dysfunction suggestive of abnormal relaxation.
LV Wall Scoring:
The apex is dyskinetic. The mid and apical anterior wall, mid anteroseptal
segment, apical lateral segment, and apical inferior segment are akinetic. The
mid and apical inferior septum, mid anterolateral segment, and mid inferior
segment are hypokinetic. All remaining scored segments are normal.
Right Ventricle:
The right ventricular cavity size is within normal limits.
Left Atrium:
Left atrial size is the left atrium is normal in size.
Right Atrium:
Right atrial size is normal. The inferior vena cava appears normal.
Aortic Valve:
Trileaflet aortic valve with no evidence of aortic stenosis or regurgitation.
Tricuspid Valve:
Structuraly normal tricuspid valve. Tricuspid valve opens normally. trace tricuspid regurgitation. Estimated pulmonary artery pressure of 20 mmHg assuming a right atrial pressure of 3 mmHg.
Pulmonary Valve:
Not assessed.
Pericardium:
There is no evidence of pericardial effusion. There is no evidence of a pleural effusion.
SUMMARY
1. Left ventricular ejection fraction is severely reduced with an ejection fraction of 27.2 % by Mendez's biplane method of discs.
2. Multiple left ventricular segmental wall motion abnormalities are noted, as described below.
3. Right ventricular cavity size is within normal limits.
4. Stage I diastolic dysfunction suggestive of abnormal relaxation.
5. No significant valve disease.
6. Compared to the prior on 08/31/2023, systolic function appears normal with similar regional wall motion abnormality. Stage III diastolic dysfunction and moderate pulmonary hypertension has improved.
Brain MRI (06/05/2025):
FINDINGS: The left posterolateral parietal lobe near the parieto-occipital junction, there is a small approximately 1.3 cm focal area of predominantly cortical restricted diffusion, compatible with an area of acute to subacute infarction, seen on
page 18 of diffusion-weighted images.
Slightly more inferiorly and posteriorly within the lateral left occipital lobe, there is an approximately 8 mm focus of restricted diffusion compatible with a focus of acute to subacute infarct, seen on page 15 of diffusion-weighted images.
On the same image, pages 15 of diffusion-weighted images, medially and slightly more posteriorly, there is a punctate 3 mm focus of acute to subacute infarct within the white matter of the left occipital lobe.
No other focal areas of acute to subacute infarction are identified.
On T2 gradient echo sequence, there is no evidence for significant hemosiderin deposition, with no findings to suggest hemorrhage.
Mild diffuse atrophy is present in this 74-year-old.
Minimal T2 and FLAIR white matter hyperintensities are present, commonly seen with aging and usually attributed to small vessel ischemic disease, certainly not unusual in a 74-year-old.
The callosal angle appears normal, and findings are not considered highly suggestive of normal pressure hydrocephalus.
Endocervical junction appears normal with no evidence for Chiari malformation. No gross abnormality of the pituitary gland.
Posterior disc/osteophyte complex at C4-5 appears to result in slight compression of the anterior spinal cord, although preservation of the posterior CSF space with no significant overall central canal stenosis.
There is evidence of previous bilateral cataract surgery.
Moderate patchy mucosal thickening of the ethmoid sinuses. Minimal mucosal thickening of the inferior frontal sinuses. Mild peripheral mucosal thickening of the left maxillary sinus with minimal inferior mucosal thickening of the right maxillary
sinus. The sphenoid sinuses appear clear. The mastoid air cells appear clear.
IMPRESSION:
Small foci of acute to subacute infarction in the left parietal and occipital lobes as described.
No evidence for associated hemorrhage.
Procedure findings :
Discharge Plan
-
Patient Disposition: Home (Routine Discharge)
Discharge Diagnosis/Procedures: Acute Cerebrovascular Accident, Heart failure with reduced ejection fraction, Essential Hypertension
Condition: Fair
Diet: Low Cholesterol and Low Sodium
Activity: As tolerated
Others Tests: We have sent a script electronically for you to obtain a repeat CT angio of head and neck prior to your vascular surgery follow-up with Dr. Carlos Alberto Santana M.D., please call central scheduling at [phone] prior to
your appointment on 12/12/2025.
Repeat Platelet Function test in 4 days.
Referrals:
Laura Sawant MD [Family Provider, [facility]] - in less than 1 week
Referral Note: Neurology recommendation: If Platelet function test is adequate after 4 days of Clopidogrel use, continue Clopidogrel as monotherapy and discontinue aspirin. If inadequate, consider changing to Ticagrelor.
Juanjose Reaves MD [Active, Neurology]
Carlos Alberto Santana MD [Active, Vascular Surgery] - 12/12/25 11:30 am
Kd Syed MD [Active, Physical Medicine / Rehab]
Referral Note: Call Dr. Syed's office for a PMR evaluation.
Additional Discharge Medication Instructions: Take clopidogrel 75mg, 1 tablet by mouth, once a day.
Discuss changing clopidogrel, aspirin use with PCP.
Prescriptions:
New
clopidogrel 75 mg Tablet
75 mg PO DAILY Qty: 30 0RF
Continued
atorvastatin 80 mg Tablet
80 mg PO QPM Qty: 30 2RF
losartan 25 mg Tablet
12.5 mg PO DAILY Qty: 30 1RF
aspirin 81 mg Tablet,Chewable
81 mg PO DAILY Qty: 0 0RF
pantoprazole 40 mg Tablet,Delayed Release (Dr/Ec)
40 mg PO DAILY Qty: 30 2RF
spironolactone 25 mg tablet
12.5 mg PO DAILY 30 Days Qty: 15 0RF
dapagliflozin propanediol [Farxiga] 10 mg Tablet
10 mg PO HS
furosemide [Lasix] 20 mg tablet
20 mg PO Q48H
fluconazole 150 mg Tablet
150 mg PO Q3D
ezetimibe [Zetia] 10 mg Tablet
10 mg PO DAILY
metoprolol succinate [Toprol XL] 25 mg Tablet Extended Release 24 Hr
12.5 mg PO DAILY
Discharge Orders:
Discharge Patient (As Directed); Ordered 06/06/25
Ordered By: Janeth Neal
Discharge Date and Time
Discharge Date/Time: 06/06/25 16:20
Print Language: BULGARIAN

Documented by User: Mayur Blair MD 06/06/25 21:33
Discharge Summary
Discharge Data
Date of Admission: 06/04/25
Date of Discharge: 06/06/25
Discharge Plan
-
Patient Disposition: Home (Routine Discharge)
Discharge Diagnosis/Procedures: Acute Cerebrovascular Accident, Heart failure with reduced ejection fraction, Essential Hypertension
Condition: Fair
Diet: Low Cholesterol and Low Sodium
Activity: As tolerated
Others Tests: We have sent a script electronically for you to obtain a repeat CT angio of head and neck prior to your vascular surgery follow-up with Dr. Carlos Alberto Santana M.D., please call central scheduling at [phone] prior to
your appointment on 12/12/2025.
Repeat Platelet Function test in 4 days.
Referrals:
Laura Sawant MD [Family Provider, Family Practice] - in less than 1 week
Referral Note: Neurology recommendation: If Platelet function test is adequate after 4 days of Clopidogrel use, continue Clopidogrel as monotherapy and discontinue aspirin. If inadequate, consider changing to Ticagrelor.
Juanjose Reaves MD [Active, Neurology]
Carlos Alberto Santana MD [Active, Vascular Surgery] - 12/12/25 11:30 am
Kd Syed MD [Active, Physical Medicine / Rehab]
Referral Note: Call Dr. Syed's office for a PMR evaluation.
Additional Discharge Medication Instructions: Take clopidogrel 75mg, 1 tablet by mouth, once a day.
Discuss changing clopidogrel, aspirin use with PCP.
Prescriptions:
New
clopidogrel 75 mg Tablet
75 mg PO DAILY Qty: 30 0RF
Continued
atorvastatin 80 mg Tablet
80 mg PO QPM Qty: 30 2RF
losartan 25 mg Tablet
12.5 mg PO DAILY Qty: 30 1RF
aspirin 81 mg Tablet,Chewable
81 mg PO DAILY Qty: 0 0RF
pantoprazole 40 mg Tablet,Delayed Release (Dr/Ec)
40 mg PO DAILY Qty: 30 2RF
spironolactone 25 mg tablet
12.5 mg PO DAILY 30 Days Qty: 15 0RF
dapagliflozin propanediol [Farxiga] 10 mg Tablet
10 mg PO HS
furosemide [Lasix] 20 mg tablet
20 mg PO Q48H
fluconazole 150 mg Tablet
150 mg PO Q3D
ezetimibe [Zetia] 10 mg Tablet
10 mg PO DAILY
metoprolol succinate [Toprol XL] 25 mg Tablet Extended Release 24 Hr
12.5 mg PO DAILY
Discharge Orders:
Discharge Patient (As Directed); Ordered 06/06/25
Ordered By: Janeth Neal
Discharge Date and Time
Discharge Date/Time: 06/06/25 16:20
Print Language: BULGARIAN
== END 2025-06-06 16:20 | disposition home or self-care (01) | DRG 62 ==
LOC: 4 WEST ACU 12:39
PROVIDERS: Clinical Nurse Specialist Family Health; ADMITTING PHYSICIAN Internal Medicine; ATTENDING PHYSICIAN Family Medicine; CONSULT PHYSICIAN Internal Medicine Critical Care Medicine; CONSULT PHYSICIAN Psychiatry & Neurology Neurology; CONSULT PHYSICIAN Surgery Vascular Surgery; EMERGENCY PHYSICIAN Emergency Medicine; FAMILY PHYSICIAN Family Medicine
PROC: 3E03317 Introduction of Other Thrombolytic into Peripheral Vein, Percutaneous Approach (ICD-10-PCS; 2025-06-04)
DX: I63.9 Cerebral infarction, unspecified (principal); I50.22 Chronic systolic (congestive) heart failure; R41.4 Neurologic neglect syndrome; I11.0 Hypertensive heart disease with heart failure; R47.01 Aphasia; I65.22 Occlusion and stenosis of left carotid artery; I27.20 Pulmonary hypertension, unspecified; Z79.84 Long term (current) use of oral hypoglycemic drugs; Z79.899 Other long term (current) drug therapy; Z79.82 Long term (current) use of aspirin; Z95.5 Presence of coronary angioplasty implant and graft; E04.1 Nontoxic single thyroid nodule; K21.9 Gastro-esophageal reflux disease without esophagitis; D50.9 Iron deficiency anemia, unspecified; Z79.02 Long term (current) use of antithrombotics/antiplatelets; Z85.3 Personal history of malignant neoplasm of breast; R29.701 NIHSS score 1; R29.706 NIHSS score 6; E11.9 Type 2 diabetes mellitus without complications; E78.00 Pure hypercholesterolemia, unspecified; F41.9 Anxiety disorder, unspecified; H02.401 Unspecified ptosis of right eyelid; I25.10 Atherosclerotic heart disease of native coronary artery without angina pectoris; I25.2 Old myocardial infarction; J45.909 Unspecified asthma, uncomplicated; M85.80 Other specified disorders of bone density and structure, unspecified site
CPT/HCPCS: 0042T; 70450; 70496; 70498; 70551; 71045; 80048; 80061; 82962; 83036; 84484; 85025; 85027; 85576; 85610; 85730; 86803; 92523; 92610; 93005; 93306; 93880; 96374; 97116; 97129; 97163; 97167; 97530; 99291; 99406; J3101; Q9967

== ENCOUNTER → 2025-06-11 11:46 | Outpatient (REF) | payer MEDICARE, OTHER, SELFPAY ==
[2025-06-11 13:52] LABS: VerifyNow PRU 58 PRU (180-376)
== END ==
LOC: REG 11:46
PROVIDERS: FAMILY PHYSICIAN Family Medicine
DX: I10 Essential (primary) hypertension (principal); I50.20 Unspecified systolic (congestive) heart failure
CPT/HCPCS: 36415; 85576

== ENCOUNTER → 2025-08-11 10:51 | Outpatient (REF) | payer MEDICARE, OTHER, SELFPAY | LOC: CLAB 10:51 | PROVIDERS: ATTENDING PHYSICIAN Family Medicine | DX: R39.9 Unspecified symptoms and signs involving the genitourinary system (principal) | CPT/HCPCS: 87086 ==

== ENCOUNTER → 2025-10-09 15:55 | Outpatient (REF) | payer MEDICARE, OTHER, SELFPAY | LOC: REG 15:55 | PROVIDERS: ATTENDING PHYSICIAN Internal Medicine Cardiovascular Disease; FAMILY PHYSICIAN Family Medicine | DX: I21.09 ST elevation (STEMI) myocardial infarction involving other coronary artery of anterior wall (principal); T82.867D Thrombosis due to cardiac prosthetic devices, implants and grafts, subsequent encounter; Z86.73 Personal history of transient ischemic attack (TIA), and cerebral infarction without residual deficits; Z78.9 Other specified health status; R79.1 Abnormal coagulation profile | CPT/HCPCS: 36415; 81240; 85300; 85307; 85610; 85613; 85730; 86146; 86147 ==